=== PATIENT | male | born 1940 | race American Indian/Alaskan Native ===

== ENCOUNTER 2020-05-09 05:58 | Outpatient (REF) | payer MEDICARE, SELFPAY ==
[2020-05-09 08:06] LABS: PSA,Total (Free>4and<10) < 0.05 ng/mL (0.00-4.00)
== END 2020-05-09 05:59 | disposition home or self-care (01) ==
LOC: HO.LAB 05:58
PROVIDERS: PCP Internal Medicine Sports Medicine; Visit Provider Urology
DX: Z12.5 Encounter for screening for malignant neoplasm of prostate (principal)
CPT/HCPCS: 84153

== ENCOUNTER → 2020-05-30 08:30 | Outpatient (BNVA) | payer MEDICARE, SELFPAY | PROVIDERS: PCP Internal Medicine Sports Medicine; Visit Provider Urology | DX: Z13.89 Encounter for screening for other disorder (principal) | CPT/HCPCS: 99212; Q3014 ==

== ENCOUNTER 2020-09-19 10:28 | Outpatient (REF) | payer MEDICARE, SELFPAY ==
[2020-09-19 12:04] LABS: MANUAL DIFF FLAG NO
[2020-09-19 12:12] LABS: Basophils Absolute Auto 0.1 X10*3/uL (0.0-0.2); Basophils Percent Auto 1.1 % (0-2); Eosinophils Absolute Auto 0.4 X10*3/uL (0.0-0.4); Eosinophils Percent Auto 5.8 % (0-4); Hematocrit 35.5 % (42-52); Hemoglobin 11.7 g/dl (14.0-18.0); Imm Gran Abs Auto 0.01 X10*3/uL (0.00-0.03); Imm Gran Pct Auto 0.1 % (0.0-0.4); Lymphocytes Absolute Auto 2.4 X10*3/uL (1.2-4.9); Lymphocytes Percent Auto 32.8 % (20-40); Mean Corpuscular Hemoglobin 33.1 pg (27.0-33.0); Mean Corpuscular Volume 100.3 fL (80-98); Mean Platelet Volume 10.3 fL (9.4-12.4); Monocytes Absolute Auto 0.8 X10*3/uL (0.1-1.2); Monocytes Percent Auto 10.7 % (2-11); Neutrophils Absolute Auto 3.6 X10*3/uL (2.0-8.3); Neutrophils Percent Auto 49.5 % (45-73); Platelet Count 260 X10*3/uL (160-400); Red Blood Count 3.54 X10*6/uL (4.60-5.80); Red Cell Distribution Width 13.4 % (11.0-16.0); White Blood Count 7.2 X10*3/uL (4.8-10.8)
[2020-09-19 13:52] LABS: Alanine Aminotransferase 42 U/L (0-40); Albumin Level 4.7 g/dL (3.5-5.0); Alkaline Phosphatase 69 U/L (39-117); Anion Gap 14 (12-20); Aspartate Amino Transferase 46 U/L (5-37); Bilirubin Total 0.6 mg/dL (0.0-1.0); Blood Urea Nitrogen 26 mg/dL (9-16); C Reactive Protein 0.09 mg/dL (< or = 0.50); Calcium 9.9 mg/dL (8.4-10.2); Carbon Dioxide 27 mmol/L (22-29); Chloride 104 mmol/L (96-108); Estimated Glomerular Filt Rate > 60; Glucose Random 106 mg/dL (60-115); Potassium 4.4 mmol/L (3.3-5.1); Sodium 141 mmol/L (135-145); Total Protein 7.2 g/dL (6.5-8.0)
[2020-09-19 14:23] LABS: Erythrocyte Sedimentation Rate 9 MM/HR (0-15)
== END 2020-09-19 10:29 | disposition home or self-care (01) ==
LOC: HO.LAB 10:28
PROVIDERS: PCP Internal Medicine Sports Medicine; Visit Provider Student in an Organized Health Care Education/Training Program
DX: M06.00 Rheumatoid arthritis without rheumatoid factor, unspecified site (principal)
CPT/HCPCS: 36415; 80053; 85025; 85652; 86140; 99212

== ENCOUNTER 2020-11-18 05:58 | Outpatient (REF) | payer MEDICARE, SELFPAY ==
[2020-11-18 07:11] LABS: Prostate Specific Antigen < 0.05 ng/mL (<0.05-4.0)
== END 2020-11-18 05:59 | disposition home or self-care (01) ==
LOC: HO.LAB 05:58
PROVIDERS: PCP Internal Medicine Sports Medicine; Visit Provider Urology
DX: C61 Malignant neoplasm of prostate (principal)
CPT/HCPCS: 36415; 84153

== ENCOUNTER → 2020-11-26 13:26 | Outpatient (BNVA) | payer MEDICARE, SELFPAY | PROVIDERS: Visit Provider Urology | DX: C61 Malignant neoplasm of prostate (principal) | CPT/HCPCS: 99212 ==

== ENCOUNTER 2021-05-20 05:55 | Outpatient (REF) | payer MEDICARE, SELFPAY ==
[2021-05-20 09:37] LABS: Prostate Specific Antigen < 0.05 ng/mL (<0.05-4.0)
== END 2021-05-20 05:56 | disposition home or self-care (01) ==
LOC: HO.LAB 05:55
PROVIDERS: PCP Internal Medicine Sports Medicine; Visit Provider Urology
DX: Z12.5 Encounter for screening for malignant neoplasm of prostate (principal); C61 Malignant neoplasm of prostate
CPT/HCPCS: 36415; 84153

== ENCOUNTER → 2021-06-17 10:42 | Outpatient (BNVA) | payer MEDICARE, SELFPAY | PROVIDERS: Visit Provider Urology | DX: Z13.89 Encounter for screening for other disorder (principal) | CPT/HCPCS: Q3014 ==

== ENCOUNTER 2021-10-06 08:05 | Outpatient (REF) | payer MEDICARE, SELFPAY ==
[2021-10-06 09:33] LABS: MANUAL DIFF FLAG NO
[2021-10-06 09:54] LABS: Basophils Absolute Auto 0.1 X10*3/uL (0.0-0.2); Eosinophils Absolute Auto 0.3 X10*3/uL (0.0-0.4); Eosinophils Percent Auto 3.9 % (0-4); Hematocrit 37.3 % (42.0-52.0); Hemoglobin 12.3 g/dl (14.0-18.0); Imm Gran Abs Auto 0.01 X10*3/uL (0.00-0.03); Imm Gran Pct Auto 0.1 % (0.0-0.4); Lymphocytes Absolute Auto 1.9 X10*3/uL (1.2-4.9); Lymphocytes Percent Auto 28.6 % (20-40); Mean Corpuscular Hemoglobin 31.9 pg (27.0-33.0); Mean Corpuscular Volume 96.9 fL (80.0-98.0); Mean Platelet Volume 9.8 fL (9.4-12.4); Monocytes Absolute Auto 0.8 X10*3/uL (0.1-1.2); Monocytes Percent Auto 11.9 % (2-11); Neutrophils Absolute Auto 3.7 x10*3/uL (2.0-8.3); Neutrophils Percent Auto 54.5 % (45-73); Platelet Count 228 X10*3/uL (160-400); Red Blood Count 3.85 X10*6/uL (4.60-5.80); Red Cell Distribution Width 13.2 % (11.0-16.0); White Blood Count 6.7 X10*3/uL (4.8-10.8)
[2021-10-06 10:27] LABS: Alanine Aminotransferase 25 U/L (0-40); Albumin Level 4.5 g/dL (3.5-5.0); Alkaline Phosphatase 68 U/L (39-117); Anion Gap 16 (12-20); Aspartate Amino Transferase 31 U/L (5-37); Bilirubin Total 0.7 mg/dL (0.0-1.0); Blood Urea Nitrogen 25 mg/dL (9-16); C Reactive Protein 0.14 mg/dL (< or = 0.50); Calcium 10.1 mg/dL (8.4-10.2); Carbon Dioxide 27 mmol/L (22-29); Chloride 103 mmol/L (96-108); Estimated Glomerular Filt Rate > 60; Glucose Random 92 mg/dL (60-115); Potassium 4.7 mmol/L (3.3-5.1); Sodium 141 mmol/L (135-145)
[2021-10-06 10:31] LABS: Erythrocyte Sedimentation Rate 9 MM/HR (0-15)
== END 2021-10-06 08:06 | disposition home or self-care (01) ==
LOC: HO.LAB 08:05
PROVIDERS: PCP Physician Assistant; Visit Provider Nurse Practitioner Family
DX: M06.00 Rheumatoid arthritis without rheumatoid factor, unspecified site (principal); R01.1 Cardiac murmur, unspecified
CPT/HCPCS: 36415; 80053; 85025; 85652; 86140; 99212

== ENCOUNTER → 2021-11-24 07:23 | Outpatient (REF) | payer MEDICARE, SELFPAY ==
--- NOTE | 2021-11-24 07:27 | CA_ITS ---
Transthoracic Echocardiogram Patient (Last, First, Middle): Piter Barber, Gender: Male Date of : 1940 Age: 81 Procedure Date: 11/24/2021 Procedure Type: Transthoracic Echocardiogram Location: OP Height: 172.72 cm Weight: 79.83 kg BSA: 1.94 m2 Heart Rate: 75 bpm BP: 144 / 80 mmHg Picture Enlarger: SB Referring MD: Lula Reddy NP Spectacle Truer: Law Ibarra MD Symptoms: R01.1 - Cardiac murmur, unspecified Study Quality: Adequate ECG Rhythm: Sinus with PACs Conclusions: - The left ventricular systolic function is mildly decreased. The visually estimated ejection fraction is between 45-50%. - There is mild aortic valve stenosis. - There is moderate mitral annular calcification. 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 Findings Left Ventricle Normal left ventricular cavity size. The left ventricular systolic function is mildly decreased. The visually estimated ejection fraction is between 45 50%. There is mild global hypokinesis. Diastolic function is normal for age. There is mild septal asymmetric hypertrophy. Right Ventricle Normal right ventricular cavity size and systolic function. Atria The left atrium is normal in size. Aortic Valve There is moderate calcification of the aortic valve. There is mild aortic valve stenosis. The mean gradient is 13 mmHg. The aortic valve area is 1.69 cm2. There is no aortic valve regurgitation. Mitral Valve There is moderate mitral annular calcification. There is trace mitral valve regurgitation. There is no mitral valve stenosis. Pulmonic Valve The pulmonic valve is likely normal. Tricuspid Valve Normal tricuspid valve structure. There is trace tricuspid valve regurgitation. Tricuspid regurgitation envelope is inadequate for calculation of right ventricular systolic pressure. 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 Venous The inferior vena cava is normal in size and collapses greater than 50% with inspiration. Pericardium/Pleural There is no evidence of pericardial effusion. Prior Study Comparison No prior study available for comparison. Measurements 2D Linear Measurements IVSd: 1.05 0.6-0.9/0.6-1.0 cm LVIDd: 5.38 3.9-5.3/4.2-5.9 cm LVIDd Index: 2.77 2.4-3.2/2.2-3.1 cm/m2 LVIDs: 4.63 2.0-3.6 cm LVPWd: 0.70 0.7-1.1 cm LA Diam: 3.90 2.7-3.8/3.0-4.0 cm LAIDs Index: 2.01 1.5-2.3 cm/m2 LV Mass: 215.02 67-162/88-224 g LV Mass Index: 110.83 43-95/49-115 g/m2 LVOT Diam: 2.20 3.0+(-)1.3 cm 2D Systolic Function EF 4C: 46.30 >55% EF 2C: 61.40 >55% EF BiP: 52.80 >55% Mitral Valve MV VTI: 0.37 MV Pk Oliverio: 1.33 MV Mn Oliverio: 0.78 MV Pk Grad: 7.00 MV Mn Grad: 3.00 MV Pk E: 0.66 MV PK A: 1.17 MV Decel Time: 310.00 E/A: 0.60 E'Lateral: 8.16 E'Medial: 3.81 E/E' Med: 17.20 E/E' Lat: 8.00 PHT: 91.00 MVA PHT: 2.42 MVA Continuity: 2.29 Decel Pepin: 2.11 Aortic Valve AoV Pk Oliverio: 2.41 AoV Mn Oliverio: 1.74 AoV VTI: 0.49 AoV Pk Grad: 23.00 Aov Mn Grad: 13.00 LOLIS Cont.VTI: 1.69 LVOT LVOT Pk Oliverio: 1.01 LVOT Mn Oliverio: 0.79 LVOT VTI: 0.22 LVOT Pk Grad: 4.00 LVOT Mn Grad: 3.00 LVOT Diam: 2.20 LVOT Area: 3.80 Diastolic Function MV Pk E: 0.66 MV Pk A: 1.17 E/A: 0.60 E'Medial: 3.81 E/E' Med: 17.20 E' Laterial: 8.16 E/E' Lat: 8.00 Right Ventricle TAPSE (mm): 19.30 TVS' Oliverio: 13.60 Great Vessels Aorta Sinus of Valsalva: 3.50 2.0-3.5 cm Ao Asc: 4.20 2.1-3.4 cm Pulmonary Veins Pulm Vein S/D 1.70 Pulmonary Valve PV Pk Oliverio: 0.81 Peak PV Grad: 3.00 Updated in Other Vendor System with Status of Final Law Ibarra MD electronically signed on 11/24/2021 11:00:55 AM with status of Final
== END ==
LOC: HO.CARD 07:23
PROVIDERS: Visit Provider Nurse Practitioner Family
DX: R01.1 Cardiac murmur, unspecified (principal)
CPT/HCPCS: 93306

== ENCOUNTER 2021-12-03 05:59 | Outpatient (REF) | payer MEDICARE, SELFPAY ==
[2021-12-03 07:09] LABS: Microalbum/Creatinine Ratio Ur 19.9 ug/mg cr
[2021-12-03 07:26] LABS: Hematocrit 34.8 % (42.0-52.0); Hemoglobin 11.3 g/dl (14.0-18.0); Mean Corpuscular HGB Conc 32.5 g/dl (31.0-36.0); Mean Corpuscular Hemoglobin 32.3 pg (27.0-33.0); Mean Corpuscular Volume 99.4 fL (80.0-98.0); Mean Platelet Volume 10.3 fL (9.4-12.4); Platelet Count 215 X10*3/uL (160-400); Red Cell Distribution Width 13.6 % (11.0-16.0); White Blood Count 5.8 X10*3/uL (4.8-10.8)
[2021-12-03 07:41] LABS: Estimated Average Glucose 97 mg/dL; Hemoglobin A1C 97.6678 umol/L
[2021-12-03 07:43] LABS: Alanine Aminotransferase 31 U/L (0-40); Albumin Level 4.5 g/dL (3.5-5.0); Alkaline Phosphatase 72 U/L (39-117); Anion Gap 13 (12-20); Aspartate Amino Transferase 33 U/L (5-37); Blood Urea Nitrogen 20 mg/dL (9-16); Calcium 9.5 mg/dL (8.4-10.2); Carbon Dioxide 29 mmol/L (22-29); Chloride 103 mmol/L (96-108); Cholesterol 185 mg/dL; Estimated Glomerular Filt Rate > 60; Glucose Fasting 101 mg/dL (60-99); HDL Cholesterol 69 mg/dL; LDL Cholesterol Calculated 85 mg/dl; Potassium 4.2 mmol/L (3.3-5.1); Sodium 141 mmol/L (135-145); Total Protein 6.9 g/dL (6.5-8.0); Triglycerides 155 mg/dL
[2021-12-03 08:00] LABS: TSH reflex Free T4 2.18 uIU/mL (0.32-4.0)
[2021-12-03 08:29] LABS: Prostate Specific Antigen < 0.05 ng/mL (<0.05-4.0)
== END 2021-12-03 06:00 | disposition home or self-care (01) ==
LOC: HO.LAB 05:59
PROVIDERS: PCP Physician Assistant; Visit Provider Urology
DX: Z12.5 Encounter for screening for malignant neoplasm of prostate (principal); C61 Malignant neoplasm of prostate; I10 Essential (primary) hypertension; E78.2 Mixed hyperlipidemia
CPT/HCPCS: 36415; 80053; 80061; 82043; 83036; 84153; 84443; 85027

== ENCOUNTER → 2021-12-09 08:32 | Outpatient (BNVA) | payer MEDICARE, SELFPAY | PROVIDERS: PCP Physician Assistant; Visit Provider Urology | DX: C61 Malignant neoplasm of prostate (principal); N40.1 Benign prostatic hyperplasia with lower urinary tract symptoms; N13.8 Other obstructive and reflux uropathy | CPT/HCPCS: Q3014 ==

== ENCOUNTER 2022-04-08 09:11 | Outpatient (REF) | payer MEDICARE, SELFPAY ==
[2022-04-08 10:48] LABS: C Reactive Protein 0.11 mg/dL (< or = 0.50)
[2022-04-08 11:28] LABS: Erythrocyte Sedimentation Rate 16 MM/HR (0-15)
== END 2022-04-08 09:12 | disposition home or self-care (01) ==
LOC: HO.10HDL 09:11
PROVIDERS: Visit Provider Internal Medicine Rheumatology
DX: M06.00 Rheumatoid arthritis without rheumatoid factor, unspecified site (principal)
CPT/HCPCS: 36415; 85652; 86140; 99212

== ENCOUNTER → 2022-06-18 10:57 | Outpatient (BNVA) | payer MEDICARE, SELFPAY | PROVIDERS: PCP Physician Assistant; Referring Provider Nurse Practitioner Family; Visit Provider Internal Medicine | DX: I77.810 Thoracic aortic ectasia (principal); I42.9 Cardiomyopathy, unspecified; I35.0 Nonrheumatic aortic (valve) stenosis; I34.81 Nonrheumatic mitral (valve) annulus calcification; R00.0 Tachycardia, unspecified | CPT/HCPCS: 93005; 99202 ==

== ENCOUNTER → 2022-06-25 07:41 | Outpatient (REF) | payer MEDICARE, SELFPAY ==
--- NOTE | ~2022-06-25 | NM_ITS ---
Lexiscan Myocardial perfusion study Indication: Cardiomyopathy, assess for coronary disease and ischemia Technique: The patient was brought in for a Lexiscan perfusion study on 06/25/2022 and was injected 0.4 mg of Lexiscan intravenously. Within a minute of this injection 30 mCi of sestamibi was given intravenously. Images were obtained using the SPECT gamma camera interlaced with the gating device. Images were obtained in supine position. Resting perfusion study was performed on 06/26/2022. Patient was administered 30 mCi of sestamibi intravenously at rest. Images were then obtained in supine position. Images were processed with the software and compared side to side in short axis, horizontal long axis and vertical long axis views. Total DLP 91mGy-cm. Findings: Raw acquisition reviewed. There is intense subdiaphragmatic uptake towards inferolateral part. The stress perfusion study showed diminished tracer uptake in the proximal inferior septum; distal inferolateral wall; proximal anterolateral wall. With CT attenuation correction, there is shows improvement in liver suggestive of mostly artifactual causes.. The gated study shows low normal LV systolic function with calculated LVEF of 54%. LV cavity is mildly dilated in size. The gated study shows normal wall thickening and contraction of segments. Resting study shows diminished tracer uptake in the basal to mid inferior wall, parts of distal inferior wall. There is also subdiaphragmatic tracer uptake adjacent to the inferolateral wall. CT attenuation corrected images appear to have much tracer uptake is most likely technical. Gating at rest reveals normal wall motion with ejection fraction at 40%. The findings are consistent with fixed appearing defect in the proximal part of inferior septum; anterolateral wall and distal inferolateral wall. Probably all artifactual. NM/NM cardiolite stress test Impression: 1. Myocardial perfusion imaging study shows no clear evidence of any ischemia or infarction. Probably normal perfusion. 2. Gated LVEF is 54% during stress and 40% during rest. 3. Transient ischemic dilatation not present but LV chamber dilated. EKG component of the test reported separately.
--- NOTE | 2022-06-25 07:44 | CA_ITS ---
Acquisition Time: 2022-06-25 08:06:39 Total Exercise Time: 00:02:00 Test Indications: CARDIOMYOPATHY Medications: SEE CHART Protocol: LEXISCAN Max HR: 093 BPM 67% of Pred: 138 BPM Max BP: 138/078 mmHG Max Work Load: 1.0 METS Pharmacological stress test with Lexiscan injection, while sitting and kicking his legs, without anginal symptoms, with isolated PVCs, with normotensive response to injection, with nondiagnostic EKG for ischemia. Nuclear images pending. Test reviewed with Dr Ibarra. Referred By: Law Ibarra Overread By: JAXON DIAZ
== END ==
LOC: HO.CARD 07:41
PROVIDERS: PCP Physician Assistant; Visit Provider Internal Medicine
DX: I42.9 Cardiomyopathy, unspecified (principal)
CPT/HCPCS: 78452; 93017; A9500; J0280; J2785

== ENCOUNTER → 2022-06-26 07:50 | Outpatient (REF) | payer MEDICARE, SELFPAY ==
--- NOTE | 2022-06-26 07:54 | HM_ITS ---
Conclusion: 1. Patient was monitored for total period of 2 days and 23 hours 2. Baseline was normal sinus with average heart of 75 beats per minute 3. Total of 22,547 PACs accounting for 7% of total beats account for frequent PACs 4. Total of 1622 PVCs accounting for 0.5% of total beats account for occasional PVCs with 1 3 beat triplet at 98 beats per minute most suggestive of excellent idioventricular rhythm 5. No patient reported events MTDD
--- NOTE | 2022-06-26 07:54 | CA_ITS ---
Transthoracic Echocardiogram Limied Patient (Last, First, Middle): Piter Barber, Gender: Male Date of : 1940 Age: 82 Procedure Date: 06/26/2022 Procedure Type: Transthoracic Echocardiogram Limied Location: OP Height: 175.26 cm Weight: 83.92 kg BSA: 2.00 m2 Heart Rate: bpm BP: 132 / 60 mmHg Barber Tool Sharpener: Referring MD: Law Ibarra MD Symptoms: I42.9 - Cardiomyopathy, unspecified Study Quality: Adequate ECG Rhythm: Sinus Conclusions: - The left ventricular systolic function is mildly decreased. The calculated ejection fraction is 46% by biplane method. Findings Left Ventricle Normal left ventricular cavity size. There is moderately increased left ventricular wall thickness. The left ventricular systolic function is mildly decreased. The calculated ejection fraction is 46% by biplane method. Right Ventricle Mildly increased right ventricular cavity size. There is normal right ventricular systolic function. Venous The inferior vena cava is normal in size and collapses greater than 50% with inspiration. Prior Study Comparison No significant change compared to prior study dated: 11/24/2021. Measurements 2D Linear Measurements IVSd: 1.35 0.6-0.9/0.6-1.0 cm LVIDd: 4.76 3.9-5.3/4.2-5.9 cm LVIDd Index: 2.38 2.4-3.2/2.2-3.1 cm/m2 LVIDs: 3.54 2.0-3.6 cm LVPWd: 1.38 0.7-1.1 cm LV Mass: 324.83 67-162/88-224 g LV Mass Index: 162.42 43-95/49-115 g/m2 LVOT Diam: 2.00 3.0+(-)1.3 cm 2D Systolic Function EF 4C: 45.60 >55% EF 2C: 44.00 >55% EF BiP: 46.00 >55% LVOT LVOT Pk Oliverio: 1.04 LVOT Mn Oliverio: 0.69 LVOT VTI: 0.21 LVOT Pk Grad: 4.00 LVOT Mn Grad: 2.00 LVOT Diam: 2.00 LVOT Area: 3.14 Updated in Other Vendor System with Status of Final Law Ibarra MD electronically signed on 06/26/2022 2:18:21 PM with status of Final
== END ==
LOC: HO.CARD 07:50
PROVIDERS: PCP Physician Assistant; Visit Provider Internal Medicine
DX: I42.9 Cardiomyopathy, unspecified (principal); R00.0 Tachycardia, unspecified; I49.1 Atrial premature depolarization
CPT/HCPCS: 93242; 93308

== ENCOUNTER 2022-08-25 05:52 | Outpatient (REF) | payer MEDICARE, SELFPAY ==
[2022-08-25 08:07] LABS: Hematocrit 35.4 % (42.0-52.0); Hemoglobin 11.7 g/dl (14.0-18.0); Mean Corpuscular HGB Conc 33.1 g/dl (31.0-36.0); Mean Corpuscular Hemoglobin 34.1 pg (27.0-33.0); Mean Corpuscular Volume 103.2 fL (80.0-98.0); Mean Platelet Volume 10.4 fL (9.4-12.4); Platelet Count 218 X10*3/uL (160-400); Red Blood Count 3.43 X10*6/uL (4.60-5.80); Red Cell Distribution Width 12.3 % (11.0-16.0); White Blood Count 6.3 X10*3/uL (4.8-10.8)
[2022-08-25 09:53] LABS: Alanine Aminotransferase 34 U/L (0-40); Albumin Level 4.5 g/dL (3.5-5.0); Alkaline Phosphatase 61 U/L (39-117); Anion Gap 16 (12-20); Aspartate Amino Transferase 32 U/L (5-37); Blood Urea Nitrogen 21 mg/dL (9-16); Calcium 9.6 mg/dL (8.4-10.2); Carbon Dioxide 27 mmol/L (22-29); Chloride 104 mmol/L (96-108); Cholesterol 199 mg/dL; Estimated Glomerular Filt Rate > 60; Glucose Fasting 79 mg/dL (60-99); HDL Cholesterol 75 mg/dL; LDL Cholesterol Calculated 101 mg/dl; Potassium 4.2 mmol/L (3.3-5.1); Sodium 143 mmol/L (135-145); Total Protein 6.7 g/dL (6.5-8.0); Triglycerides 116 mg/dL
[2022-08-25 09:58] LABS: Creatinine Urine 181.42 mg/dL; Microalbum/Creatinine Ratio Ur 22.5 ug/mg cr
== END 2022-08-25 05:53 | disposition home or self-care (01) ==
LOC: HO.LAB 05:52
PROVIDERS: PCP Physician Assistant; Visit Provider Physician Assistant
DX: E78.2 Mixed hyperlipidemia (principal); I10 Essential (primary) hypertension
CPT/HCPCS: 36415; 80053; 80061; 82043; 84443; 85027

== ENCOUNTER → 2022-09-09 08:30 | Outpatient (BNVA) | payer MEDICARE, SELFPAY | PROVIDERS: PCP Physician Assistant; Referring Provider Physician Assistant; Visit Provider Internal Medicine | DX: I42.6 Alcoholic cardiomyopathy (principal); I35.0 Nonrheumatic aortic (valve) stenosis; I34.81 Nonrheumatic mitral (valve) annulus calcification; I77.810 Thoracic aortic ectasia; F10.90 Alcohol use, unspecified, uncomplicated; R00.0 Tachycardia, unspecified | CPT/HCPCS: 93005; 99212 ==

== ENCOUNTER → 2022-10-23 07:52 | Outpatient (BNVA) | payer MEDICARE, SELFPAY | PROVIDERS: PCP Physician Assistant; Visit Provider Nurse Practitioner Family | DX: M06.00 Rheumatoid arthritis without rheumatoid factor, unspecified site (principal); R01.1 Cardiac murmur, unspecified | CPT/HCPCS: 99212 ==

== ENCOUNTER 2022-12-03 06:09 | Outpatient (REF) | payer MEDICARE, SELFPAY | END 2022-12-03 06:10 | disposition home or self-care (01) | LOC: HO.LAB 06:09 | PROVIDERS: PCP Physician Assistant; Visit Provider Urology | DX: N40.1 Benign prostatic hyperplasia with lower urinary tract symptoms (principal); N13.8 Other obstructive and reflux uropathy; C61 Malignant neoplasm of prostate; Z12.5 Encounter for screening for malignant neoplasm of prostate | CPT/HCPCS: 36415; 84153 ==

== ENCOUNTER 2022-12-09 11:25 | Outpatient (AMB) | payer MEDICARE, SELFPAY ==
--- NOTE | 2022-12-09 11:23 | A.OFFVIS_ITS ---
Intake Intake Visit Reasons: 1Y PSA(set) Intake Note: * Patient presents today for a 1 year follow-up with PSA results * Meds- None * Allergies to Antibiotic- None * Blood Thinner- None * PSA- <0.10 ng/mL Executive Chairman Of The Board Required: No Accompanied by: Self / Same As Patient Allergies lisinopril [LISINOPRIL] Allergy (Intermediate, Verified 12/09/22 11:26) ANGIOEDEMA Medication List - Last Reconciled 12/09/22 by Trever Larios MD ascorbate calcium (vitamin C) 500 mg PO DAILY hydroxychloroquine 200 mg PO BID losartan-hydrochlorothiazide 50-12.5 mg 1 tab PO DAILY 90 days simvastatin 20 mg PO BEDTIME triamcinolone acetonide 0.1% 1 appl topical DAILY 30 days HPI HPI Comments History of Present Illness Details Piter is a pleasant male. He is a patient of Dr Pratt. He is seen for the following urologic conditions - prostate cancer PSA stable Minimal symptoms Continue 12 month surveillance Prostate cancer high risk, initial therapy external beam radiation with hormones Initial diagnosis 2000 Initial therapy external beam radiation with hormones PSA has remained well controlled Minimal urinary issues denies urgency, frequency, weakness of stream PSA 11/18 <0.1, 05/20 <0.1, <0.1, 12/20 <0.1 Twelve month follow-up [facility] Medical History Elevated blood pressure reading in office with diagnosis of hypertension Gastroesophageal reflux disease Osteoarthritis, hand Primary osteoarthritis of knees, bilateral Primary osteoarthritis, left hand Primary osteoarthritis, right hand Prostate cancer Prostate cancer Rheumatoid arthritis Seronegative rheumatoid arthritis Surgical History H/O removal of cyst History of hernia repair Family History Father Myocardial infarction Mother Alzheimer disease Social History Housing: House Alcohol intake: current Alcohol intake frequency: 0-2 drinks per day Alcohol type: beer and hard liquor Patient Tobacco Use Status: Former Tobacco user Quit Date: 1955 Tobacco use type: Cigarette e-Cigarette/Vaping Use: Never Used service: No Current occupational status: retired Cognitive needs: No Hearing needs: No Vision needs: No Review of Systems Const Denies chills and Denies fever(s) Card Reports no additional complaints and Denies syncope Resp Denies cough GI Denies abdominal pain and Denies heartburn Reports as per HPI and Denies change in libido Neuro Denies syncope Psych Denies change in libido Endo Denies change in libido Physical Exam Const General: cooperative, healthy appearing, comfortable and no acute distress Orientation/consciousness: patient oriented x3 HEENT Face and sinus: Yes normal facial exam Mouth: moist mucous membranes Neck Neck: Yes normal visual inspection, Yes full ROM and Yes trachea midline Chest Chest palpation & inspection: normal inspection of the chest Resp Effort & Inspection: normal respiratory effort, able to speak in complete sentences and no respiratory distress GI Inspection: Yes normal to inspection Back/Spine/Pelvis Cervical Spine: normal cervical lordosis Thoracic/Lumbar Spine: thoracic and lumbar spine normal to inspection Skin General skin exam: no rashes or lesions noted Neuro General: patient oriented x3, gait normal, tone normal and moves all extremities Extrem General: Yes normal to inspection and Yes capillary refill normal Assessment & Plan Assessment & Plan (1) Prostate cancer: Comment: High risk, initial therapy XRT with GnRH 2 years 2000 Code(s): C61 - Malignant neoplasm of prostate Plan 12 month follow-up PSA Orders: Orders Prostate Specific Antigen 364 Days C61 - Malignant neoplasm of prostate Patient Instructions: Imaging studies, laboratory and physical exam results were discussed and reviewed in detail. No major barriers to patient understanding were identified. An opportunity to ask questions regarding the treatment plan was provided. All questions were answered. The patient expressed understanding and agreement with the above treatment plan. The patient is aware they should contact our office by phone for worsening of their current condition or the appearance of new urologic symptoms. Compliance is encouraged with any medications and followup testing that is ordered. It is a privilege to participate in the urologic care of your patient. If you have any questions or concerns regarding treatment for the above conditions, or other urologic issues, please do not hesitate to contact me. The office telephone contact is [phone]. This note is constructed using voice recognition software. While every effort has been made to ensure accuracy assistant housekeeping manager errors may have been included. Yours sincerely, Dr Trever Larios MD, [facility] - Urology Providers of Expert, Compassionate Care for the Genitourinary System Coding Level of Care Code Est Pt Level 4 (74171) Diagnoses Prostate cancer C61
== END 2022-12-09 11:49 | disposition home or self-care (01) ==
LOC: HO.HUSH 11:25
PROVIDERS: PCP Physician Assistant; Visit Provider Urology
DX: C61 Malignant neoplasm of prostate (principal)
CPT/HCPCS: 99213

== ENCOUNTER → 2022-12-09 11:25 | Outpatient (BNVA) | payer MEDICARE, SELFPAY | PROVIDERS: PCP Physician Assistant; Visit Provider Urology | DX: C61 Malignant neoplasm of prostate (principal) | CPT/HCPCS: 99212 ==

== ENCOUNTER 2023-03-08 08:12 | Outpatient (AMB) | payer MEDICARE, SELFPAY ==
--- NOTE | 2023-03-08 08:26 | A.OFFPC_ITS ---
Vital Signs 03/08/23 08:27 Height 5 ft 9 in Weight 177 lb BMI 26.1 BP 136/62 Blood Pressure Location Lt brachial Position Sitting Pulse 75 Pulse Source Pulse Oximeter Pulse Oximetry (%) 97 Oxygen Delivery Method Room Air Intake Visit Reasons: f/u HTN/ HLD / Cardiomyopathy Allergies lisinopril [LISINOPRIL] Allergy (Intermediate, Verified 03/08/23 08:35) ANGIOEDEMA Medication List - Last Reconciled 03/08/23 by Prabhu Pratt PA-C ascorbate calcium (vitamin C) 500 mg PO DAILY hydroxychloroquine 200 mg PO BID losartan-hydrochlorothiazide 50-12.5 mg 1 tab PO DAILY 90 days simvastatin 20 mg PO BEDTIME triamcinolone acetonide 0.1% 1 appl topical DAILY 30 days Tobacco use date assessed: 09/03/22 Fall risk assessment: No Falls in past year Last assessed Fall Risk: 03/08/23 Dental Screening Dental Screen Date: 03/08/23 Did you have a dental visit in the last 12 months?: No Did you have a dental problem in the last 6 months where you did not have access to dental care?: No Was dental information given to patient?: No HPI f/u HTN/ HLD / Cardiomyopathy HPI Details Patient is an 83-year-old male here today for follow-up visit.? Patient has a past medical history significant for prostate cancer, seronegative rheumatoid arthritis, hypertension and hyperlipidemia, cardiomyopathy . Cardiomyopathy: Patient recently followed up with Cardiology and underwent echocardiogram which did show mildly decreased systolic function, Holter monitor with did show several PACs and PVCs. Underwent a nuclear stress test as well without significant findings. Does report drinking 3-4 shots of camelia per day. .. Seronegative rheumatoid arthritis:? Was followed by Rheumatology , continues on Plaquenil for his RA. .. Prostate cancer:? Patient followed by a urologist and gets yearly PSAs.? Prostate cancer has been in remission.? PSAs have been nondetectable .. Hypertension:? Blood pressure acceptable today in office.? Otherwise patient asymptomatic without chest discomfort, dizziness or headaches.?. [facility] Medical History Seronegative rheumatoid arthritis Prostate cancer Gastroesophageal reflux disease Primary osteoarthritis, right hand Primary osteoarthritis, left hand Primary osteoarthritis of knees, bilateral Elevated blood pressure reading in office with diagnosis of hypertension Prostate cancer Osteoarthritis, hand Rheumatoid arthritis Surgical History History of hernia repair H/O removal of cyst Family History Father Myocardial infarction Mother Alzheimer disease Social History Housing: House Alcohol intake: current Alcohol intake frequency: 0-2 drinks per day Alcohol type: beer and hard liquor Patient Tobacco Use Status: Former Tobacco user Quit Date: 1955 Tobacco use type: Cigarette e-Cigarette/Vaping Use: Never Used service: No Current occupational status: retired Cognitive needs: No Hearing needs: No Vision needs: Yes Questionnaire PHQ-9 Over the last 2 weeks, how often have you been bothered by any of the following problems? 1. Little interest or pleasure in doing things: not at all 2. Feeling down, depressed, or hopeless: not at all 3. Trouble falling or staying asleep, or sleeping too much: not at all 4. Feeling tired or having little energy: not at all 5. Poor appetite or overeating: not at all 6. Feeling bad about yourself - or that you are a failure or have let yourself or your family down: not at all 7. Trouble concentrating on things, such as reading the newspaper or watching television: not at all 8. Moving or speaking so slowly that other people could have noticed. Or the opposite - being so fidgety or restless that you have been moving around a lot more than usual: not at all 9. Thoughts that you would be better off or of hurting yourself in some way: not at all Total score: 0 Depression Screening Interpretation: Negative Depression Screening Done: Yes [id number] - PHQ-9 Billing: Yes Source: Developed by Drs. Josh Saunders, Joyce Lobo, Umesh Romero and colleagues, with an educational mt from Anna Lozabai. Thrive Questionnaire Date Thrive assessed: 09/03/22 AUDIT C Alcohol Use Questionnaire (AUDIT-C) 1. How often do you have a drink containing alcohol?: 4 or more times a week 2. How many drinks containing alcohol do you have on a typical day when you are drinking?: 3 or 4 3. How often do you have six or more drinks on one occasion?: Daily or almost daily Total Score: 9 MARY-7 AMB Questionnaire MARY-7 Date MARY - 7 assessed: 09/03/22 Source: Developed by Drs. Josh Saunders, Joyce Lobo, Umesh Romero and colleagues, with an educational mt from Anna Lozabai. Review of Systems Const Denies headache(s) Eyes Denies loss of vision ENT Denies vertigo, Denies dizziness, Denies headache(s) and Denies sore throat Card Denies chest pain, Denies leg edema and Denies lightheadedness Resp Denies cough, Denies hemoptysis and Denies wheezing GI Denies abdominal pain, Denies melena, Denies constipation, Denies diarrhea and Denies vomiting Denies dysuria, Denies urinary frequency and Denies urinary urgency Musc Denies arthralgias, Denies joint swelling, Denies numbness and Denies tingling Neuro Denies Abnormal speech present, Denies behavioral changes, Denies vertigo, Denies dizziness, Denies headache(s), Denies loss of vision, Denies memory loss, Denies numbness and Denies tingling Psych Denies anxiety, Denies behavioral changes, Denies depression, Denies memory loss and Denies panic attacks Tomy/Lymph Denies easy bleeding and Denies easy bruising Aller/Immun Denies wheezing Physical exam (Primary Care) Vital Signs: Last Vital Signs Pulse 75 03/08/23 08:27 BP 136/62 03/08/23 08:27 Pulse Ox 97 03/08/23 08:27 Oxygen Delivery Method Room Air 03/08/23 08:27 BMI result Body Mass Index 26.1 Tobacco/Smoking Status: Tobacco use Status Tobacco use date assessed 09/03/22 03/08/23 08:31 Patient Tobacco Use Status Former Tobacco user 03/08/23 08:31 Tobacco use type Cigarette 03/08/23 08:31 e-Cigarette/Vaping Use Never Used 03/08/23 08:31 PHQ-9: PHQ-9 Score PHQ-9: Total score 0 03/08/23 08:36 Depression Screening Interpretation: Negative Thrive Assessment: Date of Thrive Assessment Date Thrive assessed 09/03/22 03/08/23 08:31 Const General: healthy appearing, no acute distress, alert and awake Nutritional Appearance: well nourished Orientation/consciousness: oriented to person, oriented to place and oriented to time HENMT Ears: TM's normal bilaterally General nose exam: Normal nasal mucous membranes and turbinates present Eyes Conjunctivae: conjunctivae normal Sclerae: sclerae normal Pupils: Equal, round and reactive pupils present Neck Neck: Yes no lymphadenopathy and Yes no JVD Thyroid: Thyroid normal Carotids: no bruits Resp Effort & Inspection: normal respiratory effort and not tachypneic Auscultation: no crackles, no rales, no rhonchi and no wheezes Cardio Rate: regular rate Rhythm: regular rhythm Heart sounds: no murmurs and normal S1 and S2 GI Palpation (GI): Soft to palpation, nontender, no hepatomegaly and no splenomegaly Auscultation: normal bowel sounds Skin General skin exam: no rashes or lesions noted and dry skin Neuro General: oriented to person, oriented to place and oriented to time Cranial nerves: Yes Equal, round and reactive pupils present Speech: No Abnormal speech present Gait exam (Neuro): Normal gait present Motor exam (neuro): no tremor noted Extrem Right upper extremity: full ROM Left upper extremity: full ROM Right lower extremity: full ROM; no edema Left lower extremity: full ROM; no edema Psych Mental Status: mental status grossly normal Speech and movement: Normal speech and movement present Affect: normal affect Attitude: cooperative Thought process: Normal thought process present Office Procedures Flu Questionnaire Does the patient have a severe egg allergy?: No Does the patient have severe life threatening allergies?: No Does the patient have a fever or illness today?: No Has the patient ever had Guillain-[place] Syndrome?: No Has the patient ever had any past reaction to a flu shot?: No Immunizations flu vacc [id number] 6mos up(PF) 60 mcg(15 mcgx4)/0.5 mL IM syringe Performing Provider: Prabhu Pratt PA-C Performing Location: [facility] Administered by: Rosemary Dunham CMA on 03/08/23 08:32 Dose Route Admin Location Dispensed Lot Number Expiration Date NDC Sr Vice President 0.5 mL IM Left Deltoid 0.5 mL [id number] 11/28/23 31036-845-59 [employer] VIS Given Date VIS Provided VIS Publication Date 03/08/23 Single Vaccine 21 Eligibility Eligibility Date Funding Source Not [facility] Eligible 03/08/23 Private Assessment and Plan Assessment & Plan (1) HTN (hypertension): Code(s): I10 - Essential (primary) hypertension Qualifiers: Hypertension type: primary hypertension Qualified Code(s): I10 - Essential (primary) hypertension Plan: Patient's blood pressure today in office acceptable will continue him on his current dose of antihypertensive medication. Blood pressure be below 140/90 (2) Cardiomyopathy: Code(s): I42.9 - Cardiomyopathy, unspecified Qualifiers: Cardiomyopathy type: alcoholic Qualified Code(s): I42.6 - Alcoholic cardiomyopathy Plan: Patient continues to follow cardiology, most recent echocardiogram showing mildly decreased left ventricular function. She does admit to drinking 3-4 per alcoholic drinks a day and promises to get down. Will follow-up with his research physician to discuss the possible need for beta- jose (3) HLD (hyperlipidemia): Code(s): E78.5 - Hyperlipidemia, unspecified Qualifiers: Hyperlipidemia type: mixed hyperlipidemia Qualified Code(s): E78.2 - Mixed hyperlipidemia Plan: Patient's most recent lipid panel acceptable. Will continue on simvastatin 20 mg Goal LDL to remain below 130 (4) Seronegative rheumatoid arthritis: Comment: OA in the hands as well. MTX 6930-2023 stopped due to alcohol use Hydroxychloroquine started 12/2017 Code(s): M06.00 - Rheumatoid arthritis without rheumatoid factor, unspecified site Plan: Patient continues on hydroxychloroquine for his rheumatoid arthritis. Does have fairly advanced arthritis in his hands. Orders: Orders Microalbumin, Random (w Creat) Today I10 - Essential (primary) hypertension Complete Blood Count no Diff Today I10 - Essential (primary) hypertension Lipid Panel Today E78.2 - Mixed hyperlipidemia Prostate Specific Antigen Scr Today E78.2 - Mixed hyperlipidemia, Z12.5 - Encounter for screening for malignant neoplasm of prostate Influenza [id number] Immunization Today Z23 - Encounter for immunization Comprehensive [place]. 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
[2023-03-08 08:27] VITALS: BP 136/62; PULSE 75; O2SAT 97; BMI 26.1
== END 2023-03-08 08:48 | disposition home or self-care (01) ==
PROVIDERS: Visit Provider Physician Assistant
DX: I10 Essential (primary) hypertension (principal); I42.6 Alcoholic cardiomyopathy; M06.00 Rheumatoid arthritis without rheumatoid factor, unspecified site; C61 Malignant neoplasm of prostate; Z23 Encounter for immunization; E78.2 Mixed hyperlipidemia
CPT/HCPCS: 90471; 90686; 99214

== ENCOUNTER → 2023-08-31 09:06 | Outpatient (REF) | payer MEDICARE, SELFPAY ==
--- NOTE | 2023-08-31 09:09 | CA_ITS ---
Transthoracic Echocardiogram Patient (Last, First, Middle): Piter Barber, Gender: Male Date of : 1940 Age: 83 Procedure Date: 08/31/2023 Procedure Type: Transthoracic Echocardiogram Location: OP Height: 180.34 cm Weight: 81.65 kg BSA: 2.02 m2 Heart Rate: bpm BP: 116 / 60 mmHg Rn Family: Referring MD: Law Ibarra MD [employer] Scanner Operator: Musa Lu MD Symptoms: I77.810 - Thoracic aortic ectasia Study Quality: Technically Difficult ECG Rhythm: Sinus Conclusions: - 1. Low normal LV ejection fraction of 50-55% with mild LVH with impaired relaxation filling pattern 2. Mildly dilated left atrium 3. At least mild aortic stenosis 4. Normal RV systolic pressure 5. Moderately dilated ascending aorta at 4.5 cm 6. No gross pericardial effusion Findings Left Ventricle The left ventricle was not well visualized. Normal left ventricular cavity size. There is mildly increased left ventricular wall thickness. The left ventricular systolic function is low normal. The visually estimated ejection fraction is between 50-55%. Spectral Doppler is indicative of an impaired relaxation filling pattern. E/E prime ratio is between 8 and 15 consistent with indeterminate filling pressures. Right Ventricle The right ventricle was not well visualized. Atria The left atrium is mildly dilated. Interatrial shunt cannot be excluded. The right atrium was not well visualized. Aortic Valve The aortic valve was not well visualized. There is moderate calcification of the aortic valve. There is moderate thickening of the aortic valve. There is mild aortic valve stenosis. The peak aortic gradient is 23 mmHg.The mean gradient is 12 mmHg. There is no aortic valve regurgitation. Mitral Valve There is mild anterior and severe posterior mitral leaflet thickening. There is severe mitral annular calcification. There is no mitral valve regurgitation. There is no mitral valve stenosis. Pulmonic Valve The pulmonic valve was not well visualized. Tricuspid Valve The tricuspid valve was not well visualized. There is mild tricuspid valve regurgitation. Tricuspid regurgitation envelope is inadequate for calculation of right ventricular systolic pressure. The right ventricular systolic pressure is 21 mmHg. Normal right atrial pressure. There is no evidence of pulmonary hypertension. Great Vessels The aorta was not well visualized. The pulmonary artery was not well visualized. There is moderate dilatation of the ascending aorta measuring 4.50 cm. Venous The inferior vena cava is normal in size. Pericardium/Pleural There is no evidence of pericardial effusion. Prior Study Comparison Changes noted compared to prior study dated: 06/26/2022. LV ejection fraction is marginally improved. Ascending aorta as further dilated at 4.5 cm Measurements 2D Linear Measurements IVSd: 1.26 0.6-0.9/0.6-1.0 cm LVIDd: 3.17 3.9-5.3/4.2-5.9 cm LVIDd Index: 1.57 2.4-3.2/2.2-3.1 cm/m2 LVIDs: 2.08 2.0-3.6 cm LVPWd: 1.25 0.7-1.1 cm Ao Root: 3.80 2.1-3.5 cm LV Mass: 157.45 67-162/88-224 g LV Mass Index: 77.95 43-95/49-115 g/m2 LVOT Diam: 2.90 3.0+(-)1.3 cm 2D Systolic Function EF 4C: 58.10 >55% EF 2C: 46.30 >55% EF BiP: 53.60 >55% Mitral Valve MV VTI: 0.39 MV Pk Oliverio: 1.52 MV Mn Oliverio: 0.79 MV Pk Grad: 9.00 MV Mn Grad: 3.00 MV Pk E: 0.75 MV PK A: 1.36 MV Decel Time: 160.00 E/A: 0.50 E'Lateral: 10.60 E'Medial: 4.57 E/E' Med: 16.30 E/E' Lat: 7.00 PHT: 47.00 MVA PHT: 4.68 MVA Continuity: 4.09 Decel Weber: 4.65 Aortic Valve AoV Pk Oliverio: 2.42 AoV Mn Oliverio: 1.57 AoV VTI: 0.46 AoV Pk Grad: 23.00 Aov Mn Grad: 12.00 LVOT LVOT Pk Oliverio: 1.10 LVOT Mn Oliverio: 0.73 LVOT VTI: 0.24 LVOT Pk Grad: 5.00 LVOT Mn Grad: 3.00 LVOT Diam: 2.90 LVOT Area: 6.61 Diastolic Function MV Pk E: 0.75 MV Pk A: 1.36 E/A: 0.50 E'Medial: 4.57 E/E' Med: 16.30 E' Laterial: 10.60 E/E' Lat: 7.00 Right Ventricle TAPSE (mm): 30.40 TVS' Oliverio: 14.40 Tricuspid Valve TR Pk Oliverio: 2.10 TR Pk Grad: 18.00 RA Press: 3.00 RVSP: 21.00 Great Vessels Aorta Ao Root-2D: 3.80 2.0-3.7 cm Ao Asc: 4.50 2.1-3.4 cm Pulmonary Valve PV Pk Oliverio: 1.11 Peak PV Grad: 5.00 Updated in Other Vendor System with Status of Final Musa Lu MD electronically signed on 09/01/2023 3:07:02 PM with status of Final
== END ==
LOC: HO.CARD 09:06
PROVIDERS: PCP Physician Assistant; Visit Provider Internal Medicine
DX: I77.810 Thoracic aortic ectasia (principal)
CPT/HCPCS: 93306

== ENCOUNTER → 2023-08-31 09:09 | Outpatient (BNV) | payer MEDICARE, SELFPAY | PROVIDERS: PCP Physician Assistant; Visit Provider Internal Medicine Cardiovascular Disease | DX: I35.0 Nonrheumatic aortic (valve) stenosis (principal); I71.21 Aneurysm of the ascending aorta, without rupture | CPT/HCPCS: 93306 ==

== ENCOUNTER 2023-09-07 08:19 | Outpatient (AMB) | payer MEDICARE, SELFPAY ==
[2023-09-07 08:25] VITALS: BP 128/70; PULSE 66; O2SAT 97; BMI 26.4
--- NOTE | 2023-09-07 08:25 | A.OFFPC_ITS ---
Vital Signs 09/07/23 08:25 Height 5 ft 9 in Weight 179 lb BMI 26.4 BP 128/70 Blood Pressure Location Lt brachial Position Sitting Pulse 66 Pulse Source Pulse Oximeter Pulse Oximetry (%) 97 Oxygen Delivery Method Room Air Intake Visit Reasons: f/u HTN/ HLD Allergies lisinopril [LISINOPRIL] Allergy (Intermediate, Verified 09/07/23 08:52) ANGIOEDEMA Medication List - Last Reconciled 09/07/23 by Prabhu Pratt PA-C ascorbate calcium (vitamin C) 500 mg PO DAILY hydroxychloroquine 200 mg PO BID losartan-hydrochlorothiazide 50-12.5 mg 1 tab PO DAILY 90 days simvastatin 20 mg PO BEDTIME triamcinolone acetonide 0.1% 1 appl topical DAILY 30 days Tobacco use date assessed: 09/07/23 Fall risk assessment: No Falls in past year Last assessed Fall Risk: 09/07/23 Dental Screening Dental Screen Date: 09/07/23 Did you have a dental visit in the last 12 months?: No Did you have a dental problem in the last 6 months where you did not have access to dental care?: No Was dental information given to patient?: No HPI f/u HTN/ HLD HPI Details Patient is an 83-year-old male here today for follow-up visit.? Patient has a past medical history significant for prostate cancer, seronegative rheumatoid arthritis, hypertension and hyperlipidemia, cardiomyopathy . UNFORTUNATELY HAS NOT GOTTEN LABS DONE FOR TODAY'S VISIT. Cardiomyopathy: Patient recently followed up with Cardiology and underwent echocardiogram which did show mildly decreased systolic function, Holter monitor with did show several PACs and PVCs. Underwent a nuclear stress test as well without significant findings. Otherwise patient reports he feels well without any overt signs of Congestive heart failure. Does report drinking 3-4 shots of camelia per day. .. Seronegative rheumatoid arthritis:? Was followed by Rheumatology , continues on Plaquenil for his RA. He denies any significant arthralgias. .. Prostate cancer:? Patient followed by a urologist and gets yearly PSAs.? Prostate cancer has been in remission.? PSAs have been nondetectable .. Hypertension:? Blood pressure acceptable today in office.? Otherwise patient asymptomatic without chest discomfort, dizziness or headaches. [facility] Medical History Seronegative rheumatoid arthritis Prostate cancer Gastroesophageal reflux disease Primary osteoarthritis, right hand Primary osteoarthritis, left hand Primary osteoarthritis of knees, bilateral Elevated blood pressure reading in office with diagnosis of hypertension Prostate cancer Osteoarthritis, hand Rheumatoid arthritis Surgical History History of hernia repair H/O removal of cyst Family History Father Myocardial infarction Mother Alzheimer disease Social History Housing: House Alcohol intake: current Alcohol intake frequency: 0-2 drinks per day Alcohol type: beer and hard liquor Patient Tobacco Use Status: Former Tobacco user Quit Date: 1955 Tobacco use type: Cigarette e-Cigarette/Vaping Use: Never Used service: No Current occupational status: retired Cognitive needs: No Hearing needs: No Vision needs: Yes Questionnaire PHQ-9 Over the last 2 weeks, how often have you been bothered by any of the following problems? 1. Little interest or pleasure in doing things: not at all 2. Feeling down, depressed, or hopeless: not at all 3. Trouble falling or staying asleep, or sleeping too much: not at all 4. Feeling tired or having little energy: not at all 5. Poor appetite or overeating: not at all 6. Feeling bad about yourself - or that you are a failure or have let yourself or your family down: not at all 7. Trouble concentrating on things, such as reading the newspaper or watching television: not at all 8. Moving or speaking so slowly that other people could have noticed. Or the opposite - being so fidgety or restless that you have been moving around a lot more than usual: not at all 9. Thoughts that you would be better off or of hurting yourself in some way: not at all Total score: 0 Depression Screening Interpretation: Negative Depression Screening Done: Yes 67175 - PHQ-9 Billing: Yes Source: Developed by Drs. Josh Saunders, Joyce Lobo, Umesh Romero and colleagues, with an educational mt from [email or web address]. Thrive Questionnaire Date Thrive assessed: 09/07/23 I am a: Patient What is your living situation today?: I have a steady place to live Within the past 12 months, did the food you bought not last and you didn't have the money to get more?: Never true Within the past 12 months, did you worry whether your food would run out before you got money to buy more?: Never true Do you have trouble paying for medicines?: No Do you have trouble getting transportation to medical appointments?: No Do you have trouble paying your heating and electricity bill?: No Do you have trouble taking care of your child, family member or friend?: No Do you have trouble with day-to-day activities such as bathing, preparing meals, shopping, managing finances, etc.?: No Are you currently unemployed and looking for a job?: No Are you interested in more education?: No Currently or been in a relationship where the following occur: no concerns reported THRIVE Score: 0 AUDIT C Alcohol Use Questionnaire (AUDIT-C) 1. How often do you have a drink containing alcohol?: 4 or more times a week 2. How many drinks containing alcohol do you have on a typical day when you are drinking?: 3 or 4 3. How often do you have six or more drinks on one occasion?: Daily or almost daily Total Score: 9 MARY-7 AMB Questionnaire MARY-7 Date MARY - 7 assessed: 09/07/23 Feeling nervous, anxious, or on edge: 0 = Not at all Not being able to stop or control worryin = Not at all Worrying too much about different things: 0 = Not at all Trouble relaxin = Not at all Being so restless that it is hard to sit still: 0 = Not at all Becoming easily annoyed or irritable: 0 = Not at all Feeling afraid as if something awful might happen: 0 = Not at all Total MARY-7 score (0-4 normal; 5-9 mild; 10-14 moderate; 15-21 severe): 0 Source: Developed by Drs. Josh Saunders, Joyce Lobo, Umesh Romero and colleagues, with an educational mt from [email or web address]. MARY-7 Assessment Billing MARY-7 Assessment Tool: MARY-7 Assessment 78039 Review of Systems Const Denies headache(s) Eyes Denies loss of vision ENT Denies vertigo, Denies dizziness, Denies headache(s) and Denies sore throat Card Denies chest pain, Denies leg edema and Denies lightheadedness Resp Denies cough, Denies hemoptysis and Denies wheezing GI Denies abdominal pain, Denies melena, Denies constipation, Denies diarrhea and Denies vomiting Denies dysuria, Denies urinary frequency and Denies urinary urgency Musc Denies arthralgias, Denies joint swelling, Denies numbness and Denies tingling Neuro Denies Abnormal speech present, Denies behavioral changes, Denies vertigo, Denies dizziness, Denies headache(s), Denies loss of vision, Denies memory loss, Denies numbness and Denies tingling Psych Denies anxiety, Denies behavioral changes, Denies depression, Denies memory loss and Denies panic attacks Tomy/Lymph Denies easy bleeding and Denies easy bruising Aller/Immun Denies wheezing Physical exam (Primary Care) Vital Signs: Last Vital Signs Pulse 66 09/07/23 08:25 BP 128/70 09/07/23 08:25 Pulse Ox 97 09/07/23 08:25 Oxygen Delivery Method Room Air 09/07/23 08:25 BMI result Body Mass Index 26.4 Tobacco/Smoking Status: Tobacco use Status Tobacco use date assessed 09/07/23 09/07/23 08:30 Patient Tobacco Use Status Former Tobacco user 09/07/23 08:30 Tobacco use type Cigarette 09/07/23 08:30 e-Cigarette/Vaping Use Never Used 09/07/23 08:30 PHQ-9: PHQ-9 Score PHQ-9: Total score 0 09/07/23 08:53 Depression Screening Interpretation: Negative Thrive Assessment: Date of Thrive Assessment Date Thrive assessed 09/07/23 09/07/23 08:30 Currently or been in a relationship where the following occur: no concerns reported Const General: healthy appearing, no acute distress, alert and awake Nutritional Appearance: well nourished Orientation/consciousness: oriented to person, oriented to place and oriented to time HENMT Ears: TM's normal bilaterally General nose exam: Normal nasal mucous membranes and turbinates present Eyes Conjunctivae: conjunctivae normal Sclerae: sclerae normal Pupils: Equal, round and reactive pupils present Neck Neck: Yes no lymphadenopathy and Yes no JVD Thyroid: Thyroid normal Carotids: no bruits Resp Effort & Inspection: normal respiratory effort and not tachypneic Auscultation: no crackles, no rales, no rhonchi and no wheezes Cardio Rate: regular rate Rhythm: regular rhythm Heart sounds: no murmurs and normal S1 and S2 GI Palpation (GI): Soft to palpation, nontender, no hepatomegaly and no splenomegaly Auscultation: normal bowel sounds Skin General skin exam: no rashes or lesions noted and dry skin Neuro General: oriented to person, oriented to place and oriented to time Cranial nerves: Yes Equal, round and reactive pupils present Speech: No Abnormal speech present Gait exam (Neuro): Normal gait present Motor exam (neuro): no tremor noted Extrem Right upper extremity: full ROM Left upper extremity: full ROM Right lower extremity: full ROM; no edema Left lower extremity: full ROM; no edema Psych Mental Status: mental status grossly normal Speech and movement: Normal speech and movement present Affect: normal affect Attitude: cooperative Thought process: Normal thought process present Assessment and Plan Assessment & Plan (1) HTN (hypertension): Code(s): I10 - Essential (primary) hypertension Plan: Patient's blood pressure today in office acceptable will continue him on his current dose of antihypertensive medication. Blood pressure be below 140/90 (2) Cardiomyopathy: Code(s): I42.9 - Cardiomyopathy, unspecified Plan: Patient continues to follow cardiology, most recent echocardiogram showing mildly decreased left ventricular function. She does admit to drinking 3-4 per alcoholic drinks a day and promises to get down. (3) HLD (hyperlipidemia): Code(s): E78.5 - Hyperlipidemia, unspecified Plan: Patient's most recent lipid panel acceptable. Patient's total cholesterol and LDL has been stable. Will continue on simvastatin 20 mg Goal LDL to remain below 130 (4) Seronegative rheumatoid arthritis: Code(s): M06.00 - Rheumatoid arthritis without rheumatoid factor, unspecified site Plan: Patient continues on hydroxychloroquine for his rheumatoid arthritis. Does have fairly advanced arthritis in his hands though was not to bother with pain or inflammation. Coding Level of Care Code Est Pt Level 4 (24814) Diagnoses HTN (hypertension) I10 Cardiomyopathy I42.9 HLD (hyperlipidemia) E78.5 Seronegative rheumatoid arthritis M06.00 Additional Codes MARY-7 Assessment Billing - MARY-7 Assessment Tool: MARY-7 Assessment 45599 ([id number])
== END 2023-09-07 09:02 | disposition home or self-care (01) ==
PROVIDERS: PCP Physician Assistant; Visit Provider Physician Assistant
DX: I10 Essential (primary) hypertension (principal); I42.9 Cardiomyopathy, unspecified; E78.5 Hyperlipidemia, unspecified; M06.00 Rheumatoid arthritis without rheumatoid factor, unspecified site
CPT/HCPCS: 99214

== ENCOUNTER 2023-09-21 06:01 | Outpatient (REF) | payer MEDICARE, SELFPAY ==
[2023-09-21 07:53] LABS: Hemoglobin 12.3 g/dl (14.0-18.0); Mean Corpuscular HGB Conc 33.2 g/dl (31.0-36.0); Mean Corpuscular Hemoglobin 33.1 pg (27.0-33.0); Mean Corpuscular Volume 99.5 fL (80.0-98.0); Mean Platelet Volume 10.1 fL (9.4-12.4); Platelet Count 238 X10*3/uL (160-400); Red Blood Count 3.72 X10*6/uL (4.60-5.80); Red Cell Distribution Width 13.3 % (11.0-16.0); White Blood Count 6.3 X10*3/uL (4.8-10.8)
[2023-09-21 08:14] LABS: Creatinine Urine 169.76 mg/dL; Microalbum/Creatinine Ratio Ur 21.7 ug/mg cr (<30)
[2023-09-21 08:23] LABS: Alanine Aminotransferase 29 U/L (0-40); Albumin Level 4.6 g/dL (3.5-5.0); Alkaline Phosphatase 65 U/L (39-117); Anion Gap 14 (12-20); Aspartate Amino Transferase 31 U/L (5-37); Bilirubin Total 0.7 mg/dL (0.0-1.0); Blood Urea Nitrogen 26 mg/dL (9-16); Calcium 9.8 mg/dL (8.4-10.2); Carbon Dioxide 30 mmol/L (22-29); Chloride 103 mmol/L (96-108); Cholesterol 195 mg/dL (<200); Estimated Glomerular Filt Rate > 60; Glucose Fasting 89 mg/dL (60-99); HDL Cholesterol 71 mg/dL (>40); LDL Cholesterol Calculated 94 mg/dL (<100); Potassium 3.8 mmol/L (3.3-5.1); Sodium 143 mmol/L (135-145); Total Protein 7.3 g/dL (6.5-8.0); Triglycerides 152 mg/dL (<150)
[2023-09-21 09:10] LABS: Prostate Specific Antigen Scr < 0.10 ng/mL (<0.05-4.0)
== END 2023-09-21 06:02 | disposition home or self-care (01) ==
LOC: HO.LAB 06:01
PROVIDERS: PCP Physician Assistant; Visit Provider Physician Assistant
DX: E78.2 Mixed hyperlipidemia (principal); I10 Essential (primary) hypertension; Z12.5 Encounter for screening for malignant neoplasm of prostate
CPT/HCPCS: 36415; 80053; 80061; 82043; 82570; 84153; 85027

== ENCOUNTER 2023-10-13 10:09 | Outpatient (AMB) | payer MEDICARE, SELFPAY ==
[2023-10-13 10:22] VITALS: BP 116/60; PULSE 105; O2SAT 99; BMI 26.4
--- NOTE | 2023-10-13 10:22 | MHC.OFFVIS ---
Vital Signs 10/13/23 10:22 Height 5 ft 9 in Weight 178 lb 9.191 oz BMI 26.4 BP 116/60 Blood Pressure Location Lt brachial Position Sitting Pulse 105 H Pulse Source Monitor Pulse Oximetry (%) 99 Oxygen Delivery Method Room Air Intake Visit Reasons: 1 year follow up, after echo Allergies lisinopril [LISINOPRIL] Allergy (Intermediate, Verified 09/07/23 08:52) ANGIOEDEMA Medication List - Last Reconciled 10/13/23 by Law Ibarra MD ascorbate calcium (vitamin C) 500 mg PO DAILY hydroxychloroquine 200 mg PO BID losartan-hydrochlorothiazide 50-12.5 mg 1 tab PO DAILY 90 days simvastatin 20 mg PO BEDTIME triamcinolone acetonide 0.1% 1 appl topical DAILY 30 days HPI Comments Details: Piter returns for follow-up. In the past, he was seen in consultation regarding an abnormal echocardiogram. That had shown mild LV dysfunction, mild aortic stenosis and moderate mitral annular calcification with mild ascending aortic dilatation. He does have a high pulse rate at times and that might be from alcohol use as he drinks essentially daily. No known coronary disease myocardial infarction. Since last seen, he states he is feeling good. No specific cardiac symptoms or concerns. [facility] Medical History Seronegative rheumatoid arthritis Prostate cancer Gastroesophageal reflux disease Primary osteoarthritis, right hand Primary osteoarthritis, left hand Primary osteoarthritis of knees, bilateral Elevated blood pressure reading in office with diagnosis of hypertension Prostate cancer Osteoarthritis, hand Rheumatoid arthritis Surgical History History of hernia repair H/O removal of cyst Family History Father Myocardial infarction Mother Alzheimer disease Social History Housing: House Alcohol intake: current Alcohol intake frequency: 0-2 drinks per day Alcohol type: beer and hard liquor Patient Tobacco Use Status: Former Tobacco user Quit Date: 1955 Tobacco use type: Cigarette e-Cigarette/Vaping Use: Never Used service: No Current occupational status: retired Cognitive needs: No Hearing needs: No Vision needs: Yes Review of Systems Const Denies weakness ENT Denies dizziness Card Denies chest pain, Denies chest pain with activity, Denies syncope, Denies rapid heart rate, Denies pedal edema, Denies edema, Denies leg edema, Denies lightheadedness, Denies palpitations, Denies dyspnea, Denies dyspnea on exertion and Denies orthopnea Resp Denies cough, Denies dyspnea and Denies dyspnea on exertion GI Denies hematochezia and Denies change in stool character Musc Denies abnormal gait, Denies muscle cramps, Denies muscle weakness, Denies numbness, Denies radiating pain into limb and Denies tingling Neuro Denies abnormal gait, Denies dizziness, Denies syncope, Denies numbness, Denies tingling and Denies weakness Endo Denies palpitations Physical Exam Vital Signs: Last Vital Signs Pulse 105 H 10/13/23 10:22 BP 116/60 10/13/23 10:22 Pulse Ox 99 10/13/23 10:22 Oxygen Delivery Method Room Air 10/13/23 10:22 BMI result Body Mass Index 26.4 Const General: comfortable and no acute distress Orientation/consciousness: patient oriented x3 HEENT Other: Unremarkable Head: Yes normal to inspection Neck Neck: Yes normal visual inspection Chest Chest palpation & inspection: normal inspection of the chest Resp Auscultation: clear to auscultation bilaterally Cardio Palpation: normal PMI Heart sounds: S1 normal heart sound present, S2 normal heart sound present, no gallops, no murmurs and no rubs GI Palpation (GI): Soft to palpation Back/Spine/Pelvis Other: unremarkable Skin General skin exam: no rashes or lesions noted Neuro General: patient oriented x3 Extrem General: Yes normal to inspection Psych Mental Status: mental status grossly normal Office Procedures EKG Details: EKG with sinus tachycardia, 105/Min; voltage criteria for LVH; nonspecific ST-T changes; normal [place]; slight prolongation of corrected QT at 507 milliseconds. [id number], Complete Assessment & Plan Assessment & Plan (1) Cardiomyopathy: Code(s): I42.9 - Cardiomyopathy, unspecified Category: Medical Plan: In the most recent echocardiogram, LVEF 50-55%. Prior to that, 46%. In the perfusion imaging, no clear evidence of any ischemia or infarction. Suspected normal perfusion. LVEF was 54% during stress and 40% during rest. Overall, this could be alcohol induced as he drinks daily. Counseled about that part. Not sure if he will change however. Clinically, he has got no heart failure symptoms or signs. (2) Non-rheumatic aortic stenosis: Code(s): I35.0 - Nonrheumatic aortic (valve) stenosis Category: Medical Plan: Mild stenosis only. Can be followed on echocardiograms. (3) Mitral annular calcification: Code(s): I34.81 - Nonrheumatic mitral (valve) annulus calcification Category: Medical Plan: Severe mitral annular calcification without any valvular dysfunction. Will need monitoring by echo. Again, clinically no symptoms. (4) Ascending aorta dilatation: Code(s): I77.810 - Thoracic aortic ectasia Category: Medical Plan: Ascending aortic size 4.5 cm. Prior to that, 4.2 cm. We will recheck in 6 months. (5) Tachycardia: Code(s): R00.0 - Tachycardia, unspecified Category: Medical Plan: Suspect all related to alcohol. (6) Alcohol use disorder: Code(s): F10.90 - Alcohol use, unspecified, uncomplicated Category: Medical Plan: Per patient, drinks several drinks daily. Has been advised to cut back. Orders: Orders CA echo transthoracic complete 6 Months I77.810 - Thoracic aortic ectasia Coding Level of Care Code Est Pt Level 4 (56638) Diagnoses Cardiomyopathy I42.9 Non-rheumatic aortic stenosis I35.0 Mitral annular calcification I34.81 Ascending aorta dilatation I77.810 Tachycardia R00.0 Alcohol use disorder F10.90 CPT Codes EKG - CPT: 29371-[id number], Complete ([id number])
== END 2023-10-13 10:44 | disposition home or self-care (01) ==
PROVIDERS: PCP Physician Assistant; Visit Provider Internal Medicine
DX: I42.9 Cardiomyopathy, unspecified (principal); I35.0 Nonrheumatic aortic (valve) stenosis; I34.81 Nonrheumatic mitral (valve) annulus calcification; I77.810 Thoracic aortic ectasia; R00.0 Tachycardia, unspecified; F10.90 Alcohol use, unspecified, uncomplicated
CPT/HCPCS: 93010; 99214

== ENCOUNTER → 2023-10-13 10:09 | Outpatient (BNVA) | payer MEDICARE, SELFPAY | PROVIDERS: PCP Physician Assistant; Visit Provider Internal Medicine | DX: I77.810 Thoracic aortic ectasia (principal); I42.9 Cardiomyopathy, unspecified; I35.0 Nonrheumatic aortic (valve) stenosis; I34.81 Nonrheumatic mitral (valve) annulus calcification; R00.0 Tachycardia, unspecified; F10.90 Alcohol use, unspecified, uncomplicated | CPT/HCPCS: 93005; 99212 ==

== ENCOUNTER 2023-12-01 08:52 | Outpatient (AMB) | payer MEDICARE, SELFPAY ==
--- NOTE | 2023-12-01 09:08 | A.OFFVIS_ITS ---
Intake Visit Reasons: 1Y PSA(set) Intake Note: Patient is Present for Follow Up PSA Urology Medication: None Antibiotic Allergies:None Blood Thinners: None Boiler Repair Supervisor Required: No Allergies lisinopril [LISINOPRIL] Allergy (Intermediate, Verified 12/01/23 09:34) ANGIOEDEMA HPI Comments Details: Piter is a pleasant male. He is a patient of Dr Pratt. He is seen for the following urologic conditions - prostate cancer PSA stable May follow-up p.r.n. PCP can follow PSA Prostate cancer high risk, initial therapy external beam radiation with hormones Initial diagnosis 2000 Initial therapy external beam radiation with hormones PSA has remained well controlled Minimal urinary issues denies urgency, frequency, weakness of stream PSA 11/18 <0.1, 05/20 <0.1, <0.1, 12/20 <0.1, 12/21 <0.1 PFSH Medical History Seronegative rheumatoid arthritis Prostate cancer Gastroesophageal reflux disease Primary osteoarthritis, right hand Primary osteoarthritis, left hand Primary osteoarthritis of knees, bilateral Elevated blood pressure reading in office with diagnosis of hypertension Prostate cancer Osteoarthritis, hand Rheumatoid arthritis Surgical History History of hernia repair H/O removal of cyst Family History Father Myocardial infarction Mother Alzheimer disease Social History Housing: House Alcohol intake: current Alcohol intake frequency: 0-2 drinks per day Alcohol type: beer and hard liquor Patient Tobacco Use Status: Former Tobacco user Tobacco use type: Cigarette e-Cigarette/Vaping Use: Never Used service: No Current occupational status: retired Cognitive needs: No Hearing needs: No Vision needs: Yes Review of Systems Const Denies chills and Denies fever(s) Card Reports no additional complaints and Denies syncope Resp Denies cough GI Denies abdominal pain and Denies heartburn Reports as per HPI and Denies change in libido Neuro Denies syncope Psych Denies change in libido Endo Denies change in libido Physical Exam Const General: cooperative, healthy appearing, comfortable and no acute distress Orientation/consciousness: patient oriented x3 HEENT Face and sinus: Yes normal facial exam Mouth: moist mucous membranes Neck Neck: Yes normal visual inspection, Yes full ROM and Yes trachea midline Chest Chest palpation & inspection: normal inspection of the chest Resp Effort & Inspection: normal respiratory effort, able to speak in complete sentences and no respiratory distress GI Inspection: Yes normal to inspection Back/Spine/Pelvis Cervical Spine: normal cervical lordosis Thoracic/Lumbar Spine: thoracic and lumbar spine normal to inspection Skin General skin exam: no rashes or lesions noted Neuro General: patient oriented x3, gait normal, tone normal and moves all extremities Extrem General: Yes normal to inspection and Yes capillary refill normal Assessment & Plan Assessment & Plan (1) Prostate cancer: Comment: High risk, initial therapy XRT with GnRH 2 years 2000 Code(s): C61 - Malignant neoplasm of prostate Category: Medical Plan P.r.n. follow-up Patient Instructions: Imaging studies, laboratory and physical exam results were discussed and reviewed in detail. No major barriers to patient understanding were identified. An opportunity to ask questions regarding the treatment plan was provided. All questions were answered. The patient expressed understanding and agreement with the above treatment plan. The patient is aware they should contact our office by phone for worsening of their current condition or the appearance of new urologic symptoms. Compliance is encouraged with any medications and followup testing that is ordered. It is a privilege to participate in the urologic care of your patient. If you have any questions or concerns regarding treatment for the above conditions, or other urologic issues, please do not hesitate to contact me. The office telephone contact is [phone]. This note is constructed using voice recognition software. While every effort has been made to ensure accuracy bridge attacher errors may have been included. Yours sincerely, Dr Trever Larios MD, [facility] - Urology Providers of Expert, Compassionate Care for the Genitourinary System Coding Level of Care Code Est Pt Level 4 (58575) Diagnoses Prostate cancer C61
== END 2023-12-01 09:57 | disposition home or self-care (01) ==
PROVIDERS: PCP Physician Assistant; Visit Provider Urology
DX: Z85.46 Personal history of malignant neoplasm of prostate (principal)
CPT/HCPCS: 99213

== ENCOUNTER → 2023-12-01 08:52 | Outpatient (BNVA) | payer MEDICARE, SELFPAY | PROVIDERS: PCP Physician Assistant; Visit Provider Urology | DX: C61 Malignant neoplasm of prostate (principal); Z92.3 Personal history of irradiation | CPT/HCPCS: 99212 ==

== ENCOUNTER 2023-12-08 07:25 | Outpatient (AMB) | payer MEDICARE, SELFPAY ==
--- NOTE | 2023-12-08 07:30 | MHC.OFFVIS ---
Vital Signs 12/08/23 07:35 Height 5 ft 9 in Weight 176 lb 12.972 oz BMI 26.1 BP 115/60 Blood Pressure Location Lt brachial Position Sitting Pulse 72 Pulse Source Pulse Oximeter Pulse Oximetry (%) 96 Oxygen Delivery Method Room Air Intake Visit Reasons: rheumatoid arthritis/CM Intake Note: Patient presents for rheumatoid arthritis. Allergies lisinopril [LISINOPRIL] Allergy (Intermediate, Verified 12/08/23 07:41) ANGIOEDEMA Medication List - Last Reconciled 12/08/23 by Marcy Hull MD ascorbate calcium (vitamin C) 500 mg PO DAILY hydroxychloroquine 200 mg PO BID losartan-hydrochlorothiazide 50-12.5 mg 1 tab PO DAILY 90 days simvastatin 20 mg PO BEDTIME triamcinolone acetonide 0.1% 1 appl topical DAILY 30 days HPI Comments Details: 83yoM presents for follow-up of seronegative rheumatoid arthritis and erosive osteoarthritis. Last seen Nicol Reddy September 2022 On Plaquenil 400 mg daily, tolerating the medication without issue. Has been working on cutting down on drinking. He stopped beer drinking. Patient reports that he continues to feel well. He denies any significant joint pain, prolonged morning stiffness, joint swelling. He is able to complete his activities of daily living without difficulty. He frequently walks and exercises on a bike riding 1 mile a day. He denies any concerns today. [facility] Medical History Seronegative rheumatoid arthritis Prostate cancer Gastroesophageal reflux disease Primary osteoarthritis, right hand Primary osteoarthritis, left hand Primary osteoarthritis of knees, bilateral Elevated blood pressure reading in office with diagnosis of hypertension Prostate cancer Osteoarthritis, hand Rheumatoid arthritis Surgical History History of hernia repair H/O removal of cyst Family History Father Myocardial infarction Mother Alzheimer disease Social History Housing: House Alcohol intake: current Alcohol intake frequency: 0-2 drinks per day Alcohol type: beer and hard liquor Patient Tobacco Use Status: Former Tobacco user Tobacco use type: Cigarette e-Cigarette/Vaping Use: Never Used service: No Current occupational status: retired Cognitive needs: No Hearing needs: No Vision needs: Yes Review of Systems Musc Denies arthralgias, Denies joint swelling and Denies stiffness Physical Exam Vital Signs: Last Vital Signs Pulse 72 12/08/23 07:35 BP 115/60 12/08/23 07:35 Pulse Ox 96 12/08/23 07:35 Oxygen Delivery Method Room Air 12/08/23 07:35 BMI result Body Mass Index 26.1 Const General: cooperative, healthy appearing and comfortable Nutritional Appearance: overweight Orientation/consciousness: patient oriented x3 Limitations: no limitations HEENT Head: Yes normocephalic and Yes atraumatic Mouth: moist mucous membranes Resp Effort & Inspection: normal respiratory effort and able to speak in complete sentences Cardio Rate: regular rate GI Palpation (GI): Soft to palpation and nontender Skin Other: Few superficial bruises (senile purpura) on forearms Neuro General: patient oriented x3 Extrem Other: Significant osteoarthritic changes of both hands with prominent Heberden's and Domingo's nodes Mildly swollen left 4th PIP associated with minimal tenderness No elbow pain with full flexion and extension bilaterally Normal range of motion of shoulders without pain No knee pain with flexion-extension No ankle synovitis bilaterally Normal nailfold capillaroscopy Assessment & Plan Assessment & Plan (1) Seronegative rheumatoid arthritis: Comment: OA in the hands as well. MTX [id number] stopped due to alcohol use Hydroxychloroquine started 12/2017 Code(s): M06.00 - Rheumatoid arthritis without rheumatoid factor, unspecified site Category: Medical Plan: Patient with seronegative rheumatoid arthritis as well as erosive osteoarthritis. On Plaquenil 400 mg daily (200mg BID).?Last visit in clinic was 1 year ago. His disease has been well controlled. He will continue Plaquenil at his current dose.? Labs before next visit in 1 year (2) Long-term use of hydroxychloroquine: Code(s): Z79.899 - Other watermelon harvesting supervisor (current) drug therapy Category: Medical Plan: Patient does not remember the name of his signaling project engineer over the last pulmonology visit. Advised patient that he should follow-up with his signaling project engineer regularly. At least once yearly. Advised patient to call our office to give us the name of his signaling project engineer once he gets home so we can request most recent office notes Plan I spent 26 minutes reviewing patient's chart, evaluating patient, ordering diagnostic workup, counseling patient and documenting in the chart Orders: Orders Complete Blood Count Auto Diff 1 Year M06.00 - Rheumatoid arthritis without rheumatoid factor, unspecified site, Z79.899 - Other watermelon harvesting supervisor (current) drug therapy Erythrocyte Sedimentation Rate 1 Year M06.00 - Rheumatoid arthritis without rheumatoid factor, unspecified site, Z79.899 - Other nursing home (current) drug therapy Comprehensive Met. Panel 1 Year M06.00 - Rheumatoid arthritis without rheumatoid factor, unspecified site, Z79.899 - Other nursing home (current) drug therapy C Reactive Protein 1 Year M06.00 - Rheumatoid arthritis without rheumatoid factor, unspecified site, Z79.899 - Other nursing home (current) drug therapy Coding Level of Care Code Est Pt Level 4 (43058) Diagnoses Seronegative rheumatoid arthritis M06.00 Long-term use of hydroxychloroquine Z79.899
[2023-12-08 07:35] VITALS: BP 115/60; PULSE 72; O2SAT 96; BMI 26.1
== END 2023-12-08 08:07 | disposition home or self-care (01) ==
PROVIDERS: PCP Physician Assistant; Visit Provider Student in an Organized Health Care Education/Training Program
DX: M06.00 Rheumatoid arthritis without rheumatoid factor, unspecified site (principal); Z79.899 Other long term (current) drug therapy
CPT/HCPCS: 99214

== ENCOUNTER → 2023-12-08 07:25 | Outpatient (BNVA) | payer MEDICARE, SELFPAY | PROVIDERS: PCP Physician Assistant; Visit Provider Student in an Organized Health Care Education/Training Program | DX: M06.00 Rheumatoid arthritis without rheumatoid factor, unspecified site (principal); M19.042 Primary osteoarthritis, left hand; M19.041 Primary osteoarthritis, right hand; Z79.899 Other long term (current) drug therapy | CPT/HCPCS: 99212 ==

== ENCOUNTER 2024-03-08 08:04 | Outpatient (AMB) | payer MEDICARE, SELFPAY ==
[2024-03-08 08:20] VITALS: BP 140/80; PULSE 101; O2SAT 97; BMI 26.0
--- NOTE | 2024-03-08 08:20 | MHC.PC.OV ---
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: No Allergies lisinopril [LISINOPRIL] Allergy (Intermediate, Verified 03/08/24 08:35) ANGIOEDEMA Medication List - Last Reconciled 03/08/24 by Prabhu Pratt PA-C ascorbate calcium (vitamin C) 500 mg PO DAILY hydroxychloroquine 200 mg PO BID losartan-hydrochlorothiazide 50-12.5 mg 1 tab PO DAILY 90 days simvastatin 20 mg PO BEDTIME triamcinolone acetonide 0.1% 1 appl topical DAILY 30 days Tobacco use date assessed: 09/07/23 Fall risk assessment: No Falls in past year Last assessed Fall Risk: 03/08/24 Dental Screening Dental Screen Date: 09/07/23 HPI f/u HTN/ RA HPI Details Patient is an 84-year-old male here today for follow-up visit.? Patient has a past medical history significant for prostate cancer, seronegative rheumatoid arthritis, hypertension and hyperlipidemia, cardiomyopathy . Cardiomyopathy: Patient recently followed up with Cardiology and underwent echocardiogram which did show mildly decreased systolic function, Holter monitor with did show several PACs and PVCs. Underwent a nuclear stress test as well without significant findings. Otherwise patient reports he feels well without any overt signs of Congestive heart failure. Does report drinking 3-4 shots of camelia per day. .. Seronegative rheumatoid arthritis:? Was followed by Rheumatology , continues on Plaquenil for his RA. He denies any significant arthralgias. .. Prostate cancer:? Patient followed by a urologist and gets yearly PSAs.? Prostate cancer has been in remission.? PSAs have been nondetectable .. Hypertension:? Blood pressure acceptable today in office.? Otherwise patient asymptomatic without chest discomfort, dizziness or headaches. Laboratory Tests 08/25/22 09/21/23 06:09 06:15 RBC 3.72 L Hgb 12.3 L Cholesterol 199 195 PSA Screen < 0.10 PFSH Medical History Seronegative rheumatoid arthritis Prostate cancer Gastroesophageal reflux disease Primary osteoarthritis, right hand Primary osteoarthritis, left hand Primary osteoarthritis of knees, bilateral Elevated blood pressure reading in office with diagnosis of hypertension Prostate cancer Osteoarthritis, hand Rheumatoid arthritis Surgical History History of hernia repair H/O removal of cyst Family History Father Myocardial infarction Mother Alzheimer disease Social History Housing: House Alcohol intake: current Alcohol intake frequency: 0-2 drinks per day Alcohol type: beer and hard liquor Patient Tobacco Use Status: Former Tobacco user Tobacco use type: Cigarette e-Cigarette/Vaping Use: Never Used service: No Current occupational status: retired Cognitive needs: No Hearing needs: No Vision needs: Yes Questionnaire Thrive Questionnaire Date Thrive assessed: 09/07/23 Are you currently unemployed and looking for a job?: No AUDIT C Alcohol Use Questionnaire (AUDIT-C) 1. How often do you have a drink containing alcohol?: 4 or more times a week 2. How many drinks containing alcohol do you have on a typical day when you are drinking?: 3 or 4 3. How often do you have six or more drinks on one occasion?: Daily or almost daily Total Score: 9 MARY-7 AMB Questionnaire MARY-7 Date MARY - 7 assessed: 09/07/23 Source: Developed by Drs. Josh Saunders, Joyce Lobo, Umesh Romero and colleagues, with an educational mt from [employer]. Review of Systems Const Denies headache(s) Eyes Denies loss of vision ENT Denies vertigo, Denies dizziness, Denies headache(s) and Denies sore throat Card Denies chest pain, Denies leg edema and Denies lightheadedness Resp Denies cough, Denies hemoptysis and Denies wheezing GI Denies abdominal pain, Denies melena, Denies constipation, Denies diarrhea and Denies vomiting Denies dysuria, Denies urinary frequency and Denies urinary urgency Musc Denies arthralgias, Denies joint swelling, Denies numbness and Denies tingling Neuro Denies Abnormal speech present, Denies behavioral changes, Denies vertigo, Denies dizziness, Denies headache(s), Denies loss of vision, Denies memory loss, Denies numbness and Denies tingling Psych Denies anxiety, Denies behavioral changes, Denies depression, Denies memory loss and Denies panic attacks Tomy/Lymph Denies easy bleeding and Denies easy bruising Aller/Immun Denies wheezing Physical exam (Primary Care) Vital Signs: Last Vital Signs Pulse 101 H 03/08/24 08:20 BP 140/80 H 03/08/24 08:20 Pulse Ox 97 03/08/24 08:20 Oxygen Delivery Method Room Air 03/08/24 08:20 BMI result Body Mass Index 26.0 Tobacco/Smoking Status: Tobacco use Status Tobacco use date assessed 09/07/23 03/08/24 08:28 Patient Tobacco Use Status Former Tobacco user 03/08/24 08:28 Tobacco use type Cigarette 03/08/24 08:28 e-Cigarette/Vaping Use Never Used 03/08/24 08:28 Thrive Assessment: Date of Thrive Assessment Date Thrive assessed 09/07/23 03/08/24 08:28 Const General: healthy appearing, no acute distress, alert and awake Nutritional Appearance: well nourished Orientation/consciousness: oriented to person, oriented to place and oriented to time HENMT Ears: TM's normal bilaterally General nose exam: Normal nasal mucous membranes and turbinates present Eyes Conjunctivae: conjunctivae normal Sclerae: sclerae normal Pupils: Equal, round and reactive pupils present Neck Neck: Yes no lymphadenopathy and Yes no JVD Thyroid: Thyroid normal Carotids: no bruits Resp Effort & Inspection: normal respiratory effort and not tachypneic Auscultation: no crackles, no rales, no rhonchi and no wheezes Cardio Rate: regular rate Rhythm: regular rhythm Heart sounds: no murmurs and normal S1 and S2 GI Palpation (GI): Soft to palpation, nontender, no hepatomegaly and no splenomegaly Auscultation: normal bowel sounds Skin General skin exam: no rashes or lesions noted and dry skin Neuro General: oriented to person, oriented to place and oriented to time Cranial nerves: Yes Equal, round and reactive pupils present Speech: No Abnormal speech present Gait exam (Neuro): Normal gait present Motor exam (neuro): no tremor noted Extrem Right upper extremity: full ROM Left upper extremity: full ROM Right lower extremity: full ROM; no edema Left lower extremity: full ROM; no edema Psych Mental Status: mental status grossly normal Speech and movement: Normal speech and movement present Affect: normal affect Attitude: cooperative Thought process: Normal thought process present Office Procedures Flu Questionnaire Does the patient have a severe egg allergy?: No Does the patient have severe life threatening allergies?: No Does the patient have a fever or illness today?: No Has the patient ever had Guillain-[place] Syndrome?: No Has the patient ever had any past reaction to a flu shot?: No Immunizations Fluarix Triv [id number] (PF) 45 mcg (15 mcg x 3)/0.5 mL IM syringe Performing Provider: Prabhu Pratt PA-C [facility] [place] [facility] Administered by: AMANDA Calderón on 03/08/24 08:49 Dose Route Admin Location Dispensed Lot Number Expiration Date NDC Assistant Research Scientist 0.5 mL IM Left Deltoid 0.5 mL [id number] 11/27/24 [id number] [employer] VIS Given Date VIS Provided VIS Publication Date 03/08/24 Single Vaccine 21 Eligibility Eligibility Date Funding Source Not [facility] Eligible 03/08/24 Private Coding Level of Care Code Est Pt Level 4 (29762) Diagnoses Mixed hyperlipidemia E78.2 Hyperlipidemia type: mixed hyperlipidemia Primary hypertension I10 Hypertension type: primary hypertension Prostate cancer C61 Alcohol use disorder F10.90 Assessment & Plan Assessment & Plan (1) HLD (hyperlipidemia): Code(s): E78.5 - Hyperlipidemia, unspecified Category: Medical Qualifiers: Hyperlipidemia type: mixed hyperlipidemia Qualified Code(s): E78.2 - Mixed hyperlipidemia Plan: Patient's most recent lipid panel showing excellent control of his total cholesterol and LDL. He continues on simvastatin 20 mg without any side effect. Goal LDL is to remain below 100 (2) HTN (hypertension): Code(s): I10 - Essential (primary) hypertension Category: Medical Qualifiers: Hypertension type: primary hypertension Qualified Code(s): I10 - Essential (primary) hypertension Plan: Patient's blood pressure slightly elevated today in office. He reports he has been nervous coming in the office. He does not regularly monitor his blood pressure at home. He reports he is consistent with the use of losartan hydrochlorothiazide. Goal blood pressures to be below 140/90 (3) Prostate cancer: Comment: High risk, initial therapy XRT with GnRH 2 years 2000 Code(s): C61 - Malignant neoplasm of prostate Category: Medical Plan: Patient continues to follow urology on an annual basis. Most recent PSAs have been undetectable (4) Alcohol use disorder: Code(s): F10.90 - Alcohol use, unspecified, uncomplicated Category: Medical Plan: Patient does admit to having a few shots of bourbon or whiskey per day. He does understand he needs to cut down Orders: Orders Microalbumin, Random (w Creat) Today I10 - Essential (primary) hypertension Complete Blood Count no Diff Today I10 - Essential (primary) hypertension Lipid Panel Today E78.2 - Mixed hyperlipidemia Comprehensive [place]. Panel Fast Today I10 - Essential (primary) hypertension Influenza 4128-1331 Immunization Today Z23 - Encounter for immunization Patient Instructions: Goal: Blood pressure to remain below 140/90, LDL to be below 100 Barriers: Adherence to physical activity and healthy eating habits
== END 2024-03-08 08:57 | disposition home or self-care (01) ==
PROVIDERS: PCP Physician Assistant; Visit Provider Physician Assistant
DX: E78.2 Mixed hyperlipidemia (principal); I10 Essential (primary) hypertension; C61 Malignant neoplasm of prostate; F10.90 Alcohol use, unspecified, uncomplicated; Z23 Encounter for immunization

== ENCOUNTER → 2024-03-08 08:04 | Outpatient (BNVA) | payer MEDICARE, SELFPAY | PROVIDERS: PCP Physician Assistant; Visit Provider Physician Assistant | DX: Z23 Encounter for immunization (principal); E78.2 Mixed hyperlipidemia; I10 Essential (primary) hypertension; C61 Malignant neoplasm of prostate; F10.90 Alcohol use, unspecified, uncomplicated | CPT/HCPCS: 90471; 90656; 99212 ==

== ENCOUNTER → 2024-04-12 08:37 | Outpatient (REF) | payer MEDICARE, SELFPAY ==
--- NOTE | 2024-04-12 08:40 | CA_ITS ---
Transthoracic Echocardiogram Patient (Last, First, Middle): Piter Barber, Gender: Male Date of : 1940 Age: 84 Procedure Date: 04/12/2024 Procedure Type: Transthoracic Echocardiogram Location: OP Height: 172.72 cm Weight: 78.02 kg BSA: 1.92 m2 Heart Rate: 81 bpm BP: 142 / [address] Driver: CARLEEN Referring MD: Law Ibarra MD Dsp Engineer: Musa Lu MD Symptoms: I77.810 - Thoracic aortic ectasia Study Quality: Fair ECG Rhythm: Sinus Conclusions: - 1. Low normal LV ejection fraction 50-55% with grade 1 diastolic dysfunction 2. Mildly dilated left atrium 3. Mild aortic regurgitation early mild aortic stenosis noted 4. Normal RV systolic pressure 5. 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 The quality of the study was technically difficult. The study quality is limited by lung artifact. Left Ventricle Normal left ventricular cavity size. There is normal left ventricular wall thickness. The left ventricular systolic function is low normal. The visually estimated ejection fraction is between 50-55%. Spectral Doppler is indicative of an impaired relaxation filling pattern. E/E prime ratio is <8, consistent with normal filling pressures. Evidence suggests grade I (mild) diastolic dysfunction. Right Ventricle The right ventricle was not well visualized. Atria The left atrium is mildly dilated. Interatrial shunt cannot be excluded. The right atrium was not well visualized. Aortic Valve The aortic valve was not well visualized. There is mild calcification of the aortic valve. There is mild thickening of the aortic valve. There is mild aortic valve stenosis. There is mild aortic valve regurgitation. Mitral Valve There is mild anterior and moderate posterior mitral leaflet thickening. There is moderate mitral annular calcification. There is trace mitral valve regurgitation. There is no mitral valve stenosis. Pulmonic Valve The pulmonic valve was not well visualized. Tricuspid Valve Likely normal tricuspid valve structure and function. There is trace tricuspid valve regurgitation. The right ventricular systolic pressure is normal. The right ventricular systolic pressure is 24 mmHg. Normal right atrial pressure. There is no evidence of pulmonary hypertension. Great Vessels The pulmonary artery was not well visualized. There is moderate dilatation of the ascending aorta measuring 4.70 cm. Venous The inferior vena cava is normal in size and collapses greater than 50% with inspiration. Pericardium/Pleural The pericardium was not well visualized. Prior Study Comparison Changes noted compared to prior study dated: 08/31/2023. ascending aorta is further dilated at 4.7 cm Measurements 2D Linear Measurements IVSd: 1.15 0.6-0.9/0.6-1.0 cm LVIDd: 5.37 3.9-5.3/4.2-5.9 cm LVIDd Index: 2.80 2.4-3.2/2.2-3.1 cm/m2 LVIDs: 4.10 2.0-3.6 cm LVPWd: 1.09 0.7-1.1 cm LA Diam: 3.80 2.7-3.8/3.0-4.0 cm LAIDs Index: 1.98 1.5-2.3 cm/m2 LV Mass: 297.29 67-162/88-224 g LV Mass Index: 154.84 43-95/49-115 g/m2 LVOT Diam: 2.60 3.0+(-)1.3 cm Mitral Valve MV VTI: 0.38 MV Pk Oliverio: 1.34 MV Mn Oliverio: 0.78 MV Pk Grad: 7.00 MV Mn Grad: 3.00 MV Pk E: 0.81 MV PK A: 1.30 MV Decel Time: 309.00 E/A: 0.60 E'Lateral: 10.80 E'Medial: 5.98 E/E' Med: 13.50 E/E' Lat: 7.50 PHT: 91.00 MVA PHT: 2.42 MVA Continuity: 2.80 Decel [place]: 2.62 Aortic Valve AoV Pk Oliverio: 2.18 AoV Mn Oliverio: 1.47 AoV VTI: 0.41 AoV Pk Grad: 19.00 Aov Mn Grad: 10.00 LLOIS Cont.VTI: 2.60 LVOT LVOT Pk Oliverio: 0.94 LVOT Mn Oliverio: 0.64 LVOT VTI: 0.20 LVOT Pk Grad: 4.00 LVOT Mn Grad: 2.00 LVOT Diam: 2.60 LVOT Area: 5.31 Diastolic Function MV Pk E: 0.81 MV Pk A: 1.30 E/A: 0.60 E'Medial: 5.98 E/E' Med: 13.50 E' Laterial: 10.80 E/E' Lat: 7.50 Right Ventricle TAPSE (mm): 22.80 TVS' Oliverio: 11.90 Tricuspid Valve TR Pk Oliverio: 2.31 TR Pk Grad: 21.00 RA Press: 3.00 RVSP: 24.00 Great Vessels Aorta Sinus of Valsalva: 4.00 2.0-3.5 cm Ao Asc: 4.70 2.1-3.4 cm Ao Arch: 3.60 Pulmonary Valve PV Pk Oliverio: 0.81 Peak PV Grad: 3.00 Updated in Other Vendor System with Status of Final Musa Lu MD electronically signed on 04/12/2024 11:18:38 AM with status of Final
== END ==
LOC: HO.CARD 08:37
PROVIDERS: PCP Physician Assistant; Visit Provider Internal Medicine
DX: I77.810 Thoracic aortic ectasia (principal)
CPT/HCPCS: 93306; Q9957

== ENCOUNTER → 2024-04-12 08:40 | Outpatient (BNV) | payer MEDICARE, SELFPAY | PROVIDERS: PCP Physician Assistant; Visit Provider Internal Medicine Cardiovascular Disease | DX: I35.2 Nonrheumatic aortic (valve) stenosis with insufficiency (principal); I34.81 Nonrheumatic mitral (valve) annulus calcification; I51.89 Other ill-defined heart diseases | CPT/HCPCS: 93306 ==

== ENCOUNTER 2024-06-13 09:03 | Outpatient (REF) | payer MEDICARE, SELFPAY ==
--- NOTE | ~2024-06-13 | CT_ITS ---
CLINICAL HISTORY: I77.810 - Thoracic aortic ectasia CT angiography chest with contrast. 3D Postprocessing. Comparison: None Findings: The heart is normal size. RV/LV ratio is normal. Ascending thoracic aorta measures 4.1 x 4.1 cm (sagittal by coronal). Minimal atherosclerosis. There is normal branching pattern. Great vessels are patent. Pulmonary arteries are not adequately opacified to assess for embolus. No enlarged mediastinal or hilar lymph nodes. Elevated left hemidiaphragm. Mild subsegmental atelectasis in the left lower lobe. No consolidation, pleural effusion or pneumothorax. The visualized upper abdomen is unremarkable. Degenerative changes of the spine. IMPRESSION: 1. Ascending thoracic aorta measures 4.1 cm. 2. No acute cardiopulmonary findings. This document has been electronically signed by: Yfn Paula MD on 06/14/2024 18:17:07
[2024-06-13 09:52] LABS: Anion Gap 13 (12-20); Blood Urea Nitrogen 20 mg/dL (9-16); Calcium 9.7 mg/dL (8.4-10.2); Carbon Dioxide 29 mmol/L (22-29); Chloride 104 mmol/L (96-108); Estimated Glomerular Filt Rate > 60; Glucose Random 107 mg/dL (60-115); Potassium 4.3 mmol/L (3.3-5.1); Sodium 142 mmol/L (135-145)
[2024-06-13] MEDS: iohexoL 350 MG/ML 75 ML INFUS..BTL 70 ML IV (10:44)
== END 2024-06-13 09:04 | disposition home or self-care (01) ==
LOC: HO.CT 09:03
PROVIDERS: PCP Physician Assistant; Visit Provider Internal Medicine
DX: I77.810 Thoracic aortic ectasia (principal)
CPT/HCPCS: 36415; 71275; 80048; Q9967

== ENCOUNTER → 2024-06-13 09:08 | Outpatient (BNV) | payer MEDICARE, SELFPAY | PROVIDERS: PCP Physician Assistant; Visit Provider Radiology Diagnostic Radiology | DX: I77.810 Thoracic aortic ectasia (principal) | CPT/HCPCS: 71275 ==

== ENCOUNTER 2024-09-06 08:01 | Outpatient (AMB) | payer MEDICARE, SELFPAY ==
[2024-09-06 08:08] VITALS: BP 134/76; PULSE 59; O2SAT 96; BMI 28.0
--- NOTE | 2024-09-06 08:08 | MHC.PC.OV ---
Vital Signs 09/06/24 08:08 Height 5 ft 7 in Weight 179 lb BMI 28.0 BP 134/76 Blood Pressure Location Lt brachial Position Sitting Pulse 59 Pulse Source Pulse Oximeter Pulse Oximetry (%) 96 Oxygen Delivery Method Room Air Intake Visit Reasons: f/u HTN/ HLD/ Arthritis - see comments Allergies lisinopril [LISINOPRIL] Allergy (Intermediate, Verified 09/06/24 08:16) ANGIOEDEMA Medication List - Last Reconciled 09/06/24 by Prabhu Pratt PA-C ascorbate calcium (vitamin C) 500 mg PO DAILY hydroxychloroquine 200 mg PO BID losartan-hydrochlorothiazide 50-12.5 mg 1 tab PO DAILY 90 days simvastatin 20 mg PO BEDTIME triamcinolone acetonide 0.1% 1 appl topical DAILY 30 days Tobacco use date assessed: 09/06/24 Fall risk assessment: No Falls in past year Last assessed Fall Risk: 09/06/24 Dental Screening Dental Screen Date: 09/06/24 Did you have a dental visit in the last 12 months?: No Did you have a dental problem in the last 6 months where you did not have access to dental care?: No Was dental information given to patient?: No HPI f/u HTN/ HLD/ Arthritis - see comments HPI Details Patient is an 84-year-old male here today for follow-up visit.? Patient has a past medical history significant for prostate cancer, seronegative rheumatoid arthritis, hypertension and hyperlipidemia, cardiomyopathy . Cardiomyopathy: Patient recently followed up with Cardiology and underwent echocardiogram which did show mildly decreased systolic function, Holter monitor with did show several PACs and PVCs. Underwent a nuclear stress test as well without significant findings. Otherwise patient reports he feels well without any overt signs of Congestive heart failure. 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 Recent CTA Chest showing thoracic aortic dilation at 4.1 cm. Unfortunately lost follow-up with Cardiology. Does report drinking 3-4 shots of camelia per day. .. Seronegative rheumatoid arthritis:? Was followed by Rheumatology , continues on Plaquenil for his RA. He denies any significant arthralgias. .. Prostate cancer:? Patient followed by a urologist and gets yearly PSAs.? Prostate cancer has been in remission.? PSAs have been nondetectable .. Hypertension:? Blood pressure acceptable today in office.? Otherwise patient asymptomatic without chest discomfort, dizziness or headaches. Laboratory Tests 06/13/24 09:24 Creatinine 1.10 [facility] Medical History Seronegative rheumatoid arthritis Prostate cancer Gastroesophageal reflux disease Primary osteoarthritis, right hand Primary osteoarthritis, left hand Primary osteoarthritis of knees, bilateral Elevated blood pressure reading in office with diagnosis of hypertension Prostate cancer Osteoarthritis, hand Rheumatoid arthritis Surgical History History of hernia repair H/O removal of cyst Family History Father Myocardial infarction Mother Alzheimer disease Social History Housing: House Alcohol intake: current Alcohol intake frequency: 0-2 drinks per day Alcohol type: beer and hard liquor Patient Tobacco Use Status: Former Tobacco user Tobacco use type: Cigarette e-Cigarette/Vaping Use: Never Used Second Hand Smoke Exposure: No service: No Current occupational status: retired Cognitive needs: No Hearing needs: No Vision needs: Yes Questionnaire PHQ-9 Over the last 2 weeks, how often have you been bothered by any of the following problems? 1. Little interest or pleasure in doing things: not at all 2. Feeling down, depressed, or hopeless: not at all 3. Trouble falling or staying asleep, or sleeping too much: not at all 4. Feeling tired or having little energy: not at all 5. Poor appetite or overeating: not at all 6. Feeling bad about yourself - or that you are a failure or have let yourself or your family down: not at all 7. Trouble concentrating on things, such as reading the newspaper or watching television: not at all 8. Moving or speaking so slowly that other people could have noticed. Or the opposite - being so fidgety or restless that you have been moving around a lot more than usual: not at all 9. Thoughts that you would be better off or of hurting yourself in some way: not at all Total score: 0 Depression Screening Interpretation: Negative Depression Screening Done: Yes 96288 - PHQ-9 Billing: Yes Source: Developed by Drs. Josh Saunders, Umesh Manuel and colleagues, with an educational mt from [employer]. Thrive Questionnaire Date Thrive assessed: 09/06/24 I am a: Patient What is your living situation today?: I have a steady place to live Within the past 12 months, did the food you bought not last and you didn't have the money to get more?: Never true Within the past 12 months, did you worry whether your food would run out before you got money to buy more?: Never true Do you have trouble paying for medicines?: No Do you have trouble getting transportation to medical appointments?: No Do you have trouble paying your heating and electricity bill?: No Do you have trouble taking care of your child, family member or friend?: No Do you have trouble with day-to-day activities such as bathing, preparing meals, shopping, managing finances, etc.?: No Are you currently unemployed and looking for a job?: No Are you interested in more education?: No Currently or been in a relationship where the following occur: No concerns reported THRIVE Score: 0 AUDIT C Alcohol Use Questionnaire (AUDIT-C) 1. How often do you have a drink containing alcohol?: 4 or more times a week 2. How many drinks containing alcohol do you have on a typical day when you are drinking?: 3 or 4 3. How often do you have six or more drinks on one occasion?: Daily or almost daily Total Score: 9 MARY-7 AMB Questionnaire MARY-7 Date MARY - 7 assessed: 09/06/24 Feeling nervous, anxious, or on edge: 0 = Not at all Not being able to stop or control worryin = Not at all Worrying too much about different things: 0 = Not at all Trouble relaxin = Not at all Being so restless that it is hard to sit still: 0 = Not at all Becoming easily annoyed or irritable: 0 = Not at all Feeling afraid as if something awful might happen: 0 = Not at all Total MARY-7 score (0-4 normal; 5-9 mild; 10-14 moderate; 15-21 severe): 0 Source: Developed by Joyce Pinzon Kurt Kroenke and colleagues, with an educational mt from [employer]. MARY-7 Assessment Billing MARY-7 Assessment Tool: MARY-7 Assessment 71601 Review of Systems Const Denies headache(s) Eyes Denies loss of vision ENT Denies vertigo, Denies dizziness, Denies headache(s) and Denies sore throat Card Denies chest pain, Denies leg edema and Denies lightheadedness Resp Denies cough, Denies hemoptysis and Denies wheezing GI Denies abdominal pain, Denies melena, Denies constipation, Denies diarrhea and Denies vomiting Denies dysuria, Denies urinary frequency and Denies urinary urgency Musc Denies arthralgias, Denies joint swelling, Denies numbness and Denies tingling Neuro Denies Abnormal speech present, Denies behavioral changes, Denies vertigo, Denies dizziness, Denies headache(s), Denies loss of vision, Denies memory loss, Denies numbness and Denies tingling Psych Denies anxiety, Denies behavioral changes, Denies depression, Denies memory loss and Denies panic attacks Tomy/Lymph Denies easy bleeding and Denies easy bruising Aller/Immun Denies wheezing Physical exam (Primary Care) Vital Signs: Last Vital Signs Pulse 59 09/06/24 08:08 BP 134/76 09/06/24 08:08 Pulse Ox 96 09/06/24 08:08 Oxygen Delivery Method Room Air 09/06/24 08:08 BMI result Body Mass Index 28.0 Tobacco/Smoking Status: Tobacco use Status Tobacco use date assessed 09/06/24 09/06/24 08:14 Patient Tobacco Use Status Former Tobacco user 09/06/24 08:14 Tobacco use type Cigarette 09/06/24 08:14 e-Cigarette/Vaping Use Never Used 09/06/24 08:14 PHQ-9: PHQ-9 Score PHQ-9: Total score 0 09/06/24 08:35 Depression Screening Interpretation: Negative Thrive Assessment: Date of Thrive Assessment Date Thrive assessed 09/06/24 09/06/24 08:14 Currently or been in a relationship where the following occur: No concerns reported Const General: healthy appearing, no acute distress, alert and awake Nutritional Appearance: well nourished Orientation/consciousness: oriented to person, oriented to place and oriented to time HENMT Ears: TM's normal bilaterally General nose exam: Normal nasal mucous membranes and turbinates present Eyes Conjunctivae: conjunctivae normal Sclerae: sclerae normal Pupils: Equal, round and reactive pupils present Neck Neck: Yes no lymphadenopathy and Yes no JVD Thyroid: Thyroid normal Carotids: no bruits Resp Effort & Inspection: normal respiratory effort and not tachypneic Auscultation: no crackles, no rales, no rhonchi and no wheezes Cardio Rate: regular rate Rhythm: regular rhythm Heart sounds: no murmurs and normal S1 and S2 GI Palpation (GI): Soft to palpation, nontender, no hepatomegaly and no splenomegaly Auscultation: normal bowel sounds Skin General skin exam: no rashes or lesions noted and dry skin Neuro General: oriented to person, oriented to place and oriented to time Cranial nerves: Yes Equal, round and reactive pupils present Speech: No Abnormal speech present Gait exam (Neuro): Normal gait present Motor exam (neuro): no tremor noted Extrem Right upper extremity: full ROM Left upper extremity: full ROM Right lower extremity: full ROM; no edema Left lower extremity: full ROM; no edema Psych Mental Status: mental status grossly normal Speech and movement: Normal speech and movement present Affect: normal affect Attitude: cooperative Thought process: Normal thought process present Immunizations pneumoc 20-rl conj-dip cr(PF) 0.5 mL IM syringe Performing Provider: Prabhu Pratt PA-C [facility] Administered by: Rosemary Dunham CMA on 09/06/24 08:35 Dose Route Admin Location Dispensed Lot Number Expiration Date [facility] [employer] 0.5 mL IM Left Deltoid 0.5 mL [id number] 10/29/25 [employer] VIS Given Date VIS Provided VIS Publication Date 09/06/24 Single Vaccine 21 Eligibility Eligibility Date Funding Source Not [facility] Eligible 09/06/24 Private Coding Level of Care Code Est Pt Level 4 (80304) Diagnoses Mixed hyperlipidemia E78.2 Hyperlipidemia type: mixed hyperlipidemia Primary hypertension I10 Hypertension type: primary hypertension Prostate cancer C61 Alcohol use disorder F10.90 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 He continues on simvastatin 20 mg without any side effect. Goal LDL is to remain below 100 (2) HTN (hypertension): Code(s): I10 - Essential (primary) hypertension Category: Medical Qualifiers: Hypertension type: primary hypertension Qualified Code(s): I10 - Essential (primary) hypertension Plan: Patient's blood pressure acceptable today in office. He does not regularly monitor his blood pressure at home. He reports he is consistent with the use of losartan hydrochlorothiazide. Goal blood pressures to be below 140/90 (3) Prostate cancer: Comment: High risk, initial therapy XRT with GnRH 2 years 2000 Code(s): C61 - Malignant neoplasm of prostate Category: Medical Plan: Patient continues to follow urology on an annual basis. Most recent PSAs have been undetectable (4) Alcohol use disorder: Code(s): F10.90 - Alcohol use, unspecified, uncomplicated Category: Medical Plan: Patient does admit to having a few shots of camelia per day. He does understand he needs to cut down (5) Cardiomyopathy: Code(s): I42.9 - Cardiomyopathy, unspecified Category: Medical Qualifiers: Cardiomyopathy type: alcoholic Qualified Code(s): I42.6 - Alcoholic cardiomyopathy Plan: Was followed by [facility], seems to have lost follow-up. Did have a dilated ascending aorta that was followed. Will try to get another transthoracic echocardiogram to evaluate for any enlarging aortic dilation (6) Seronegative rheumatoid arthritis: Comment: OA in the hands as well. MTX [id number] stopped due to alcohol use Hydroxychloroquine started 12/2017 Code(s): M06.00 - Rheumatoid arthritis without rheumatoid factor, unspecified site Category: Medical Plan: Patient continues on hydroxychloroquine. He reports only mild arthritic pain. (7) Ascending aorta dilatation: Code(s): I77.810 - Thoracic aortic ectasia Category: Medical Plan: Will try for repeat transthoracic echocardiogram to evaluate for any enlarging ascending aortic dilation. Recent CT angio chest showing-- >Ascending thoracic aorta measures 4.1 x 4.1 cm Orders: Orders Pneumococcal 20 Immunization Today Z23 - Encounter for immunization CA echo transthoracic complete Today I77.810 - Thoracic aortic ectasia Medications: Refilled triamcinolone acetonide 0.1% 1 appl topical DAILY 454 grams 2RF 30 days L30.9 - Dermatitis, unspecified
== END 2024-09-06 08:41 | disposition home or self-care (01) ==
LOC: HO.HMCH 08:02
PROVIDERS: PCP Physician Assistant; Visit Provider Physician Assistant
DX: M06.00 Rheumatoid arthritis without rheumatoid factor, unspecified site (principal); C61 Malignant neoplasm of prostate; I42.6 Alcoholic cardiomyopathy; I77.810 Thoracic aortic ectasia; E78.2 Mixed hyperlipidemia; I10 Essential (primary) hypertension; F10.90 Alcohol use, unspecified, uncomplicated; Z23 Encounter for immunization

== ENCOUNTER → 2024-09-06 08:01 | Outpatient (BNVA) | payer MEDICARE, SELFPAY | PROVIDERS: PCP Physician Assistant; Visit Provider Physician Assistant | DX: I10 Essential (primary) hypertension (principal); M06.00 Rheumatoid arthritis without rheumatoid factor, unspecified site; I42.9 Cardiomyopathy, unspecified; E78.2 Mixed hyperlipidemia; C61 Malignant neoplasm of prostate; F10.90 Alcohol use, unspecified, uncomplicated; I42.6 Alcoholic cardiomyopathy; I77.810 Thoracic aortic ectasia; L30.9 Dermatitis, unspecified; Z85.46 Personal history of malignant neoplasm of prostate; Z23 Encounter for immunization | CPT/HCPCS: 90471; 90677; 96127; 99212 ==

== ENCOUNTER → 2024-09-29 07:39 | Outpatient (REF) | payer MEDICARE, SELFPAY ==
--- NOTE | 2024-09-29 07:42 | CA_ITS ---
Transthoracic Echocardiogram Patient (Last, First, Middle): Piter Barber, Gender: Male Date of : 1940 Age: 84 Procedure Date: 09/29/2024 Procedure Type: Transthoracic Echocardiogram Location: OP Height: 180.34 cm Weight: 79.83 kg BSA: 2.00 m2 Heart Rate: bpm BP: 118 / 62 mmHg Curing Bin Operator: TO Referring MD: Prabhu Pratt PA-C Symptoms: I77.810 - Thoracic aortic ectasia Study Quality: Adequate ECG Rhythm: Sinus Conclusions: - Normal left ventricular cavity size. The left ventricular systolic function is low normal. The visually estimated ejection fraction is between 50-55%. - E/E prime ratio is between 8 and 15 consistent with indeterminate filling pressures. - Normal right ventricular cavity size and systolic function. - There is moderate dilatation of the ascending aorta measuring 4.70 cm. Findings Left Ventricle Normal left ventricular cavity size. The left ventricular systolic function is low normal. The visually estimated ejection fraction is between 50-55%. There is no evidence of regional wall motion abnormalities. Abnormal diastolic function is noted. Spectral Doppler is indicative of an impaired relaxation filling pattern. E/E prime ratio is between 8 and 15 consistent with indeterminate filling pressures. Right Ventricle Normal right ventricular cavity size and systolic function. Atria The left atrium is mildly dilated. The right atrium is normal in size. Aortic Valve There is mild calcification of the aortic valve. There is mild aortic valve stenosis. There is mild aortic valve regurgitation. Mitral Valve There is no mitral valve regurgitation. There is no mitral valve stenosis. There is subvalvular calcification. Pulmonic Valve The pulmonic valve is likely normal. Tricuspid Valve Normal tricuspid valve structure. There is no tricuspid valve regurgitation. Normal right atrial pressure. There is no evidence of pulmonary hypertension. Great Vessels There is moderate dilatation of the ascending aorta measuring 4.70 cm. Venous The inferior vena cava is normal in size and collapses greater than 50% with inspiration. Pericardium/Pleural There is no evidence of pericardial effusion. Prior Study Comparison No significant change compared to prior study dated: 04/12/2024. Measurements 2D Linear Measurements IVSd: 1.10 0.6-0.9/0.6-1.0 cm LVIDd: 4.42 3.9-5.3/4.2-5.9 cm LVIDd Index: 2.21 2.4-3.2/2.2-3.1 cm/m2 LVIDs: 3.37 2.0-3.6 cm LVPWd: 0.90 0.7-1.1 cm LV Mass: 185.13 67-162/88-224 g LV Mass Index: 92.57 43-95/49-115 g/m2 LVOT Diam: 2.40 3.0+(-)1.3 cm 2D Systolic Function EF 4C: 48.30 >55% EF 2C: 56.40 >55% EF BiP: 53.20 >55% Mitral Valve MV VTI: 0.36 MV Pk Oliverio: 1.43 MV Mn Oliverio: 0.71 MV Pk Grad: 8.00 MV Mn Grad: 3.00 MV Pk E: 0.82 MV PK A: 1.34 MV Decel Time: 189.00 E/A: 0.60 E'Lateral: 9.03 E'Medial: 4.24 E/E' Med: 19.30 E/E' Lat: 9.10 PHT: 55.00 MVA PHT: 4.00 MVA Continuity: 2.76 Decel Campbell: 4.34 Aortic Valve AoV Pk Oliverio: 2.39 AoV Mn Oliverio: 1.74 AoV VTI: 0.55 AoV Pk Grad: 23.00 Aov Mn Grad: 13.00 LOLIS Cont.VTI: 1.80 LVOT LVOT Pk Oliverio: 0.96 LVOT Mn Oliverio: 0.62 LVOT VTI: 0.22 LVOT Pk Grad: 4.00 LVOT Mn Grad: 2.00 LVOT Diam: 2.40 LVOT Area: 4.52 Diastolic Function MV Pk E: 0.82 MV Pk A: 1.34 E/A: 0.60 E'Medial: 4.24 E/E' Med: 19.30 E' Laterial: 9.03 E/E' Lat: 9.10 Right Ventricle TAPSE (mm): 25.00 TVS' Oliverio: 13.00 Tricuspid Valve TR Pk Oliverio: 2.00 TR Pk Grad: 16.00 RA Press: 3.00 RVSP: 19.00 Great Vessels Aorta Ao Asc: 4.70 2.1-3.4 cm Ao Arch: 3.50 Updated in Other Vendor System with Status of Final Aníbal Kilgore MD electronically signed on 10/01/2024 9:33:31 PM with status of Final
[2024-09-29 09:31] LABS: Hematocrit 36.5 % (42.0-52.0); Mean Corpuscular HGB Conc 32.9 g/dl (31.0-36.0); Mean Corpuscular Hemoglobin 33.1 pg (27.0-33.0); Mean Corpuscular Volume 100.8 fL (80.0-98.0); Mean Platelet Volume 9.6 fL (9.4-12.4); Platelet Count 259 X10*3/uL (160-400); Red Blood Count 3.62 X10*6/uL (4.60-5.80); White Blood Count 8.2 X10*3/uL (4.8-10.8)
[2024-09-29 10:19] LABS: Alanine Aminotransferase 34 U/L (0-40); Albumin Level 4.5 g/dL (3.5-5.0); Alkaline Phosphatase 72 U/L (39-117); Anion Gap 14 (12-20); Aspartate Amino Transferase 37 U/L (5-37); Bilirubin Total 0.7 mg/dL (0.0-1.0); Blood Urea Nitrogen 22 mg/dL (9-16); Calcium 9.9 mg/dL (8.4-10.2); Carbon Dioxide 30 mmol/L (22-29); Chloride 103 mmol/L (96-108); Cholesterol 184 mg/dL (<200); Estimated Glomerular Filt Rate > 60; Glucose Fasting 95 mg/dL (60-99); HDL Cholesterol 74 mg/dL (>40); LDL Cholesterol Calculated 78 mg/dL (<100); Potassium 4.2 mmol/L (3.3-5.1); Sodium 143 mmol/L (135-145); Triglycerides 162 mg/dL (<150)
[2024-09-29 10:39] LABS: Creatinine Urine 101.48 mg/dL; Microalbum/Creatinine Ratio Ur 19.7 ug/mg cr (<30)
== END ==
LOC: HO.CARD 07:39
PROVIDERS: PCP Physician Assistant; Visit Provider Internal Medicine
DX: I77.810 Thoracic aortic ectasia (principal); I10 Essential (primary) hypertension; E78.2 Mixed hyperlipidemia
CPT/HCPCS: 36415; 80053; 80061; 82043; 82570; 85027; 93306

== ENCOUNTER → 2024-09-29 07:42 | Outpatient (BNV) | payer MEDICARE, SELFPAY | PROVIDERS: PCP Physician Assistant; Visit Provider Internal Medicine Cardiovascular Disease | DX: I35.2 Nonrheumatic aortic (valve) stenosis with insufficiency (principal) | CPT/HCPCS: 93306 ==

== ENCOUNTER 2025-03-08 08:21 | Outpatient (AMB) | payer MEDICARE, SELFPAY ==
[2025-03-08 08:32] VITALS: BP 116/70; PULSE 75; TEMP 36.1; O2SAT 95; BMI 27.2
--- NOTE | 2025-03-08 08:32 | A.OFFPC_ITS ---
Vital Signs 3 03/08/25 08:32 Height 5 ft 7 in Weight 174 lb BMI 27.2 BP 116/70 Blood Pressure Location Lt brachial Position Sitting Pulse 75 Pulse Source Pulse Oximeter Temp 97.0 F Temp Source Temporal Artery Scan Pulse Oximetry (%) 95 Oxygen Delivery Method Room Air Intake Visit Reasons: f/u HLD/ HTN- see comments Allergies lisinopril (LISINOPRIL) Allergy (Intermediate, Verified 03/08/25 08:37) ANGIOEDEMA Medication List - Last Reconciled 03/08/25 by LORI Rutherford-Stephenie ascorbate calcium (vitamin C) 500 mg PO DAILY hydroxychloroquine 200 mg PO BID losartan-hydrochlorothiazide 50-12.5 mg 1 tab PO DAILY 90 days simvastatin 20 mg PO BEDTIME triamcinolone acetonide 0.1% 1 appl topical DAILY 30 days Tobacco use date assessed: 03/08/25 Fall risk assessment: No Falls in past year Last assessed Fall Risk: 03/08/25 Dental Screening Dental Screen Date: 03/08/25 Did you have a dental visit in the last 12 months?: No Did you have a dental problem in the last 6 months where you did not have access to dental care?: No Was dental information given to patient?: No HPI f/u HLD/ HTN- see comments 2 HPI0 Details Patient is an 85-year-old male here today for follow-up visit.? Patient has a past medical history significant for prostate cancer, seronegative rheumatoid arthritis, hypertension and hyperlipidemia, cardiomyopathy Concern-- > has noted itchy rash over his back to which she has been using triamcinolone cream. Does not usually use a moisturizer. Skin manifestation appears to be psoriasis versus eczema PLEASE SEE PICTURE IN PHYSICAL EXAM SECTIONED. . Cardiomyopathy: Patient has lost follow up to Cardiology. Otherwise patient reports he feels well without any overt signs of Congestive heart failure. 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 Recent CTA Chest showing thoracic aortic dilation at 4.1 cm. Unfortunately lost follow-up with Cardiology. Does report drinking 3-4 shots of camelia per day. PLAN: Will plan for another transthoracic echocardiogram to evaluate any progression in his valvular disease and ascending aortic dilation .. Seronegative rheumatoid arthritis:? Was followed by Rheumatology , continues on Plaquenil for his RA. He denies any significant arthralgias. .. Prostate cancer:? Patient followed by a urologist and gets yearly PSAs.? Prostate cancer has been in remission.? PSAs have been nondetectable .. Hypertension:? Blood pressure acceptable today in office.? Otherwise patient asymptomatic without chest discomfort, dizziness or headaches. [facility] Medical History Seronegative rheumatoid arthritis Prostate cancer Gastroesophageal reflux disease Primary osteoarthritis, right hand Primary osteoarthritis, left hand Primary osteoarthritis of knees, bilateral Elevated blood pressure reading in office with diagnosis of hypertension Prostate cancer Osteoarthritis, hand Rheumatoid arthritis Surgical History History of hernia repair H/O removal of cyst Family History Father Myocardial infarction Mother Alzheimer disease Social History Housing: House Alcohol intake: current Alcohol intake frequency: 0-2 drinks per day Alcohol type: beer and hard liquor Patient Tobacco Use Status: Former Tobacco user Tobacco use type: Cigarette e-Cigarette/Vaping Use: Never Used Second Hand Smoke Exposure: No service: No Current occupational status: retired Cognitive needs: No Hearing needs: No Vision needs: Yes Questionnaire PHQ-9 Over the last 2 weeks, how often have you been bothered by any of the following problems? 1. Little interest or pleasure in doing things: not at all 2. Feeling down, depressed, or hopeless: not at all 3. Trouble falling or staying asleep, or sleeping too much: not at all 4. Feeling tired or having little energy: not at all 5. Poor appetite or overeating: not at all 6. Feeling bad about yourself - or that you are a failure or have let yourself or your family down: not at all 7. Trouble concentrating on things, such as reading the newspaper or watching television: not at all 8. Moving or speaking so slowly that other people could have noticed. Or the opposite - being so fidgety or restless that you have been moving around a lot more than usual: not at all 9. Thoughts that you would be better off or of hurting yourself in some way: not at all Total score: 0 Depression Screening Interpretation: Negative Depression Screening Done: Yes 45150 - PHQ-9 Billing: Yes Source: Developed by Drs. Josh Saunders, Joyce Lobo, Umesh Romero and colleagues, with an educational mt from [employer]. Thrive Questionnaire Date Thrive assessed: 09/06/24 I am a: Patient What is your living situation today?: I have a steady place to live Within the past 12 months, did the food you bought not last and you didn't have the money to get more?: Never true Within the past 12 months, did you worry whether your food would run out before you got money to buy more?: Never true Do you have trouble paying for medicines?: No Do you have trouble getting transportation to medical appointments?: No Do you have trouble paying your heating and electricity bill?: No Do you have trouble taking care of your child, family member or friend?: No Do you have trouble with day-to-day activities such as bathing, preparing meals, shopping, managing finances, etc.?: No Are you currently unemployed and looking for a job?: No Are you interested in more education?: No Currently or been in a relationship where the following occur: No concerns reported THRIVE Score: 0 AUDIT C Alcohol Use Questionnaire (AUDIT-C) 1. How often do you have a drink containing alcohol?: 4 or more times a week 2. How many drinks containing alcohol do you have on a typical day when you are drinking?: 3 or 4 3. How often do you have six or more drinks on one occasion?: Never Total Score: 5 MARY-7 AMB Questionnaire MARY-7 Date MARY - 7 assessed: 09/06/24 Feeling nervous, anxious, or on edge: 0 = Not at all Not being able to stop or control worryin = Not at all Worrying too much about different things: 0 = Not at all Trouble relaxin = Not at all Being so restless that it is hard to sit still: 0 = Not at all Becoming easily annoyed or irritable: 0 = Not at all Feeling afraid as if something awful might happen: 0 = Not at all Total MARY-7 score (0-4 normal; 5-9 mild; 10-14 moderate; 15-21 severe): 0 Source: Developed by Drs. Josh Saunders, Joyce Lobo, Umesh Romero and colleagues, with an educational mt from [employer]. MARY-7 Assessment Billing MARY-7 Assessment Tool: MARY-7 Assessment 73733 Review of Systems Const Denies headache(s) Eyes Denies loss of vision ENT Denies vertigo, Denies dizziness, Denies headache(s) and Denies sore throat Card Denies chest pain, Denies leg edema and Denies lightheadedness Resp Denies cough, Denies hemoptysis and Denies wheezing GI Denies abdominal pain, Denies melena, Denies constipation, Denies diarrhea and Denies vomiting Denies dysuria, Denies urinary frequency and Denies urinary urgency Musc Denies arthralgias, Denies joint swelling, Denies numbness and Denies tingling Neuro Denies Abnormal speech present, Denies behavioral changes, Denies vertigo, Denies dizziness, Denies headache(s), Denies loss of vision, Denies memory loss, Denies numbness and Denies tingling Psych Denies anxiety, Denies behavioral changes, Denies depression, Denies memory loss and Denies panic attacks Tomy/Lymph Denies easy bleeding and Denies easy bruising Aller/Immun Denies wheezing Physical exam (Primary Care) Vital Signs: Last Vital Signs Temp 97.0 F 03/08/25 08:32 Pulse 75 03/08/25 08:32 BP 116/70 03/08/25 08:32 Pulse Ox 95 03/08/25 08:32 Oxygen Delivery Method Room Air 03/08/25 08:32 BMI result Body Mass Index 27.2 Tobacco/Smoking Status: Tobacco use Status Tobacco use date assessed 03/08/25 03/08/25 08:35 Patient Tobacco Use Status Former Tobacco user 03/08/25 08:35 Tobacco use type Cigarette 03/08/25 08:35 e-Cigarette/Vaping Use Never Used 03/08/25 08:35 PHQ-9: PHQ-9 Score PHQ-9: Total score 0 03/08/25 08:40 Depression Screening Interpretation: Negative Thrive Assessment: Date of Thrive Assessment Date Thrive assessed 09/06/24 03/08/25 08:35 Currently or been in a relationship where the following occur: No concerns reported Const General: healthy appearing, no acute distress, alert and awake Nutritional Appearance: well nourished Orientation/consciousness: oriented to person, oriented to place and oriented to time HENMT Ears: TM's normal bilaterally General nose exam: Normal nasal mucous membranes and turbinates present Eyes Conjunctivae: conjunctivae normal Sclerae: sclerae normal Pupils: Equal, round and reactive pupils present Neck Neck: Yes no lymphadenopathy and Yes no JVD Thyroid: Thyroid normal Carotids: no bruits Resp Effort & Inspection: normal respiratory effort and not tachypneic Auscultation: no crackles, no rales, no rhonchi and no wheezes Cardio Rate: regular rate Rhythm: regular rhythm Heart sounds: no murmurs and normal S1 and S2 GI Palpation (GI): Soft to palpation, nontender, no hepatomegaly and no splenomegaly Auscultation: normal bowel sounds Skin Other: General skin exam: no rashes or lesions noted and dry skin Neuro General: oriented to person, oriented to place and oriented to time Cranial nerves: Yes Equal, round and reactive pupils present Speech: No Abnormal speech present Gait exam (Neuro): Normal gait present Motor exam (neuro): no tremor noted Extrem Right upper extremity: full ROM Left upper extremity: full ROM Right lower extremity: full ROM; no edema Left lower extremity: full ROM; no edema Psych Mental Status: mental status grossly normal Speech and movement: Normal speech and movement present Affect: normal affect Attitude: cooperative Thought process: Normal thought process present Office Procedures Flu Questionnaire Does the patient have a severe egg allergy?: No Does the patient have severe life threatening allergies?: No Does the patient have a fever or illness today?: No Has the patient ever had Guillain-[place] Syndrome?: No Has the patient ever had any past reaction to a flu shot?: No Immunizations Fluarix [id number] (PF) 45 mcg (15 mcg x 3)/0.5 mL IM syringe Performing Provider: Prabhu Pratt PA-C [facility] Administered by: Hailey Luke CMA on 03/08/25 08:53 2 Dose Route Admin Location Dispensed Lot Number Expiration Date [facility] Occupational Therapist Assistant 0.5 mL IM Left Deltoid 0.5 mL [id number] 11/27/25 [id number] MIGSIF 2 VIS Given Date VIS Provided VIS Publication Date 03/08/25 Single Vaccine 24 Eligibility Eligibility Date Funding Source Not [facility] Eligible 03/08/25 Private Coding Level of Care Code Est Pt Level 4 (36811) Diagnoses Mixed hyperlipidemia E78.2 Hyperlipidemia type: mixed hyperlipidemia Primary hypertension I10 Hypertension type: primary hypertension Prostate cancer C61 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 He continues on simvastatin 20 mg without any side effect. Goal LDL is to remain below 100 (2) HTN (hypertension): Code(s): I10 - Essential (primary) hypertension Category: Medical Qualifiers: Hypertension type: primary hypertension Qualified Code(s): I10 - Essential (primary) hypertension Plan: Patient's blood pressure acceptable today in office. He does not regularly monitor his blood pressure at home. He reports he is consistent with the use of losartan hydrochlorothiazide. Goal blood pressures to be below 140/90 (3) Prostate cancer: Comment: High risk, initial therapy XRT with GnRH 2 years 2000 Code(s): C61 - Malignant neoplasm of prostate Category: Medical Plan: Patient continues to follow urology on an annual basis. Most recent PSAs have been undetectable (4) Cardiomyopathy: Code(s): I42.9 - Cardiomyopathy, unspecified Category: Medical Qualifiers: Cardiomyopathy type: alcoholic Qualified Code(s): I42.6 - Alcoholic cardiomyopathy Plan: Was followed by [facility], seems to have lost follow-up. Did have a dilated ascending aorta that was followed. Will try to get another transthoracic echocardiogram to evaluate for any enlarging aortic dilation (5) Seronegative rheumatoid arthritis: Comment: OA in the hands as well. MTX [id number] stopped due to alcohol use Hydroxychloroquine started 12/2017 Code(s): M06.00 - Rheumatoid arthritis without rheumatoid factor, unspecified site Category: Medical Plan: Patient continues on hydroxychloroquine. He reports only mild arthritic pain. (6) Ascending aorta dilatation: Code(s): I77.810 - Thoracic aortic ectasia Category: Medical Plan: Will try for repeat transthoracic echocardiogram to evaluate for any enlarging ascending aortic dilation. Recent CT angio chest showing-- >Ascending thoracic aorta measures 4.1 x 4.1 cm (7) Psoriasis: Code(s): L40.9 - Psoriasis, unspecified Category: Medical Plan: For the psoriasis, the patient will continue using topical treatments and moisturizers, with the option to consult a sociocultural anthropology professor if the condition worsens. Orders: Orders 2 Comprehensive [place]. Panel Fast Today I10 - Essential (primary) hypertension Complete Blood Count no Diff Today I10 - Essential (primary) hypertension Microalbumin, Random (w Creat) Today I10 - Essential (primary) hypertension Lipid Panel Today E78.2 - Mixed hyperlipidemia Prostate Specific Antigen Scr Today C61 - Malignant neoplasm of prostate, Z12.5 - Encounter for screening for malignant neoplasm of prostate CA echo transthoracic complete Today I34.81 - Nonrheumatic mitral (valve) annulus calcification Influenza [id number] Immunization Today Z23 - Encounter for immunization Medications: Refilled 2 triamcinolone acetonide 0.1% 1 appl topical DAILY 454 grams 2RF 30 days L30.9 - Dermatitis, unspecified
== END 2025-03-08 08:56 | disposition home or self-care (01) ==
LOC: HO.HMCH 08:22
PROVIDERS: PCP Physician Assistant; Visit Provider Physician Assistant
DX: I10 Essential (primary) hypertension (principal); C61 Malignant neoplasm of prostate; I42.6 Alcoholic cardiomyopathy; M06.00 Rheumatoid arthritis without rheumatoid factor, unspecified site; E78.2 Mixed hyperlipidemia; I77.810 Thoracic aortic ectasia; L40.9 Psoriasis, unspecified; Z23 Encounter for immunization

== ENCOUNTER → 2025-03-08 08:21 | Outpatient (BNVA) | payer MEDICARE, SELFPAY | PROVIDERS: PCP Physician Assistant; Visit Provider Physician Assistant | DX: E78.2 Mixed hyperlipidemia (principal); Z23 Encounter for immunization; I10 Essential (primary) hypertension; C61 Malignant neoplasm of prostate; I42.6 Alcoholic cardiomyopathy; M06.00 Rheumatoid arthritis without rheumatoid factor, unspecified site; I77.810 Thoracic aortic ectasia; L40.9 Psoriasis, unspecified; Z79.899 Other long term (current) drug therapy; Z13.31 Encounter for screening for depression | CPT/HCPCS: 90471; 90656; 96127; 99212 ==

== ENCOUNTER → 2025-04-17 08:27 | Outpatient (REF) | payer MEDICARE, SELFPAY ==
--- NOTE | 2025-04-17 09:02 | CA_ITS ---
Transthoracic Echocardiogram Patient (Last, First, Middle): Piter Barber, Gender: Fortino Date of : 1940 Age: 85 Procedure Date: 04/17/2025 Procedure Type: Transthoracic Echocardiogram Location: OP Height: 172.72 cm Weight: 78.47 kg BSA: 1.92 m2 Heart Rate: 71 bpm BP: 118 / 60 mmHg Bioinformatics Support Specialist: TONE Referring MD: Prabhu Pratt PA-C Symptoms: I34.81 - Nonrheumatic mitral (valve) annulus calcification Study Quality: Fair ECG Rhythm: Arrhythmia Conclusions: - The left ventricular systolic function is mildly decreased. The visually estimated ejection fraction is between 45-50%. - There is moderate calcification of the aortic valve. There is mild aortic valve stenosis. - There is severe mitral annular calcification. - There is moderate dilatation of the ascending aorta measuring 4.70 cm. Findings Left Ventricle Normal left ventricular cavity size. There is mildly increased left ventricular wall thickness. The left ventricular systolic function is mildly decreased. The visually estimated ejection fraction is between 45-50%. There is mild global hypokinesis. Evidence suggests grade I (mild) diastolic dysfunction. Right Ventricle Mildly increased right ventricular cavity size. There is normal right ventricular systolic function. Atria Both atria are normal in size. Aortic Valve There is moderate calcification of the aortic valve. There is mild aortic valve stenosis. Trace to mild aortic regurgitation. Mitral Valve There is severe mitral annular calcification. There is trace mitral valve regurgitation. There is no mitral valve stenosis. Pulmonic Valve The pulmonic valve is likely normal. Tricuspid Valve Normal tricuspid valve structure. There is trace tricuspid valve regurgitation. Tricuspid regurgitation envelope is inadequate for calculation of right ventricular systolic pressure. Great Vessels The aortic arch is normal in size. There is moderate dilatation of the ascending aorta measuring 4.70 cm. Venous The inferior vena cava is normal in size and collapses greater than 50% with inspiration. Pericardium/Pleural There is no evidence of pericardial effusion. Prior Study Comparison No significant change compared to prior study dated: 09/29/2024. Measurements 2D Linear Measurements IVSd: 0.87 0.6-0.9/0.6-1.0 cm LVIDd: 4.79 3.9-5.3/4.2-5.9 cm LVIDd Index: 2.49 2.4-3.2/2.2-3.1 cm/m2 LVIDs: 2.92 2.0-3.6 cm LVPWd: 0.88 0.7-1.1 cm LA Diam: 2.90 2.7-3.8/3.0-4.0 cm LAIDs Index: 1.51 1.5-2.3 cm/m2 LV Mass: 176.88 67-162/88-224 g LV Mass Index: 92.13 43-95/49-115 g/m2 LVOT Diam: 2.30 3.0+(-)1.3 cm 2D Systolic Function EF 4C: 42.10 >55% EF 2C: 44.40 >55% EF BiP: 42.70 >55% Mitral Valve MV Pk E: 0.85 MV PK A: 1.50 MV Decel Time: 320.00 E/A: 0.60 E'Lateral: 8.81 E'Medial: 6.42 E/E' Med: 13.30 E/E' Lat: 9.70 PHT: 94.00 MVA PHT: 2.34 Decel Moore: 2.67 Aortic Valve AoV Pk Oliverio: 2.34 AoV Mn Oliverio: 1.66 AoV VTI: 0.48 AoV Pk Grad: 22.00 Aov Mn Grad: 13.00 LOLIS Cont.VTI: 1.70 AI Pk Oliverio: 4.00 AI Moore: 2.53 LVOT LVOT Pk Oliverio: 0.97 LVOT Mn Oliverio: 0.68 LVOT VTI: 0.20 LVOT Pk Grad: 4.00 LVOT Mn Grad: 2.00 LVOT Diam: 2.30 LVOT Area: 4.15 Diastolic Function MV Pk E: 0.85 MV Pk A: 1.50 E/A: 0.60 E'Medial: 6.42 E/E' Med: 13.30 E' Laterial: 8.81 E/E' Lat: 9.70 Right Ventricle TAPSE (mm): 24.80 TVS' Oliverio: 11.50 Tricuspid Valve RA Press: 3.00 Great Vessels Aorta Sinus of Valsalva: 4.00 2.0-3.5 cm Ao Asc: 4.70 2.1-3.4 cm Ao Arch: 3.30 Pulmonary Veins Pulm Vein S/D 1.10 Pulmonary Valve PV Pk Oliverio: 1.03 Peak PV Grad: 4.00 Updated in Other Vendor System with Status of Final Law Ibarra MD electronically signed on 04/18/2025 3:14:34 PM with status of Final
== END ==
LOC: HO.CARD 08:27
PROVIDERS: PCP Physician Assistant; Visit Provider Physician Assistant
DX: I34.81 Nonrheumatic mitral (valve) annulus calcification (principal)
CPT/HCPCS: 93306

== ENCOUNTER → 2025-04-17 09:02 | Outpatient (BNV) | payer MEDICARE, SELFPAY | PROVIDERS: PCP Physician Assistant; Visit Provider Internal Medicine | DX: I34.81 Nonrheumatic mitral (valve) annulus calcification (principal); I35.8 Other nonrheumatic aortic valve disorders; I77.810 Thoracic aortic ectasia | CPT/HCPCS: 93306 ==

== ENCOUNTER 2025-05-11 06:11 | Outpatient (REF) | payer MEDICARE, SELFPAY ==
--- OUTSIDE RECORDS SUMMARY | 2025-05-11 06:13 | XMS_ITS ---
Author Name [facility] Organization Unknown Care Team Organization Name Specialty Phone Email Start Date End Da te [facility] Serafin [facility] 04/07/2022 01/17/2024
--- OUTSIDE RECORDS SUMMARY | 2025-05-11 06:13 | XMS_ITS | Patient Health Record ---
Author Organization [facility] Address [address] [place] [address] Care Team Providers Care First Line Supervisor Name Role Phone Josh Wolf Unavailable [phone] Reason For Referral No Information Plan Of Treatment No Information
[2025-05-11 07:12] LABS: Hematocrit 36.7 % (42.0-52.0); Hemoglobin 11.9 g/dl (14.0-18.0); Mean Corpuscular HGB Conc 32.4 g/dl (31.0-36.0); Mean Corpuscular Hemoglobin 33.2 pg (27.0-33.0); Mean Corpuscular Volume 102.5 fL (80.0-98.0); NRBC Abs Auto 0.000 X10*3/uL (0.0-0.012); NRBC Pct Auto 0.0 /100WBC (0.0-0.2); Platelet Count 247 X10*3/uL (160-400); Red Blood Count 3.58 X10*6/uL (4.60-5.80); White Blood Count 7.1 X10*3/uL (4.8-10.8)
[2025-05-11 07:43] LABS: Alanine Aminotransferase 35 U/L (0-40); Albumin Level 4.7 g/dL (3.5-5.0); Alkaline Phosphatase 77 U/L (39-117); Anion Gap 14 (12-20); Aspartate Amino Transferase 39 U/L (5-37); Blood Urea Nitrogen 26 mg/dL (9-16); Calcium 10.0 mg/dL (8.4-10.2); Carbon Dioxide 28 mmol/L (22-29); Chloride 105 mmol/L (96-108); Cholesterol 179 mg/dL (<200); Estimated Glomerular Filt Rate 58; HDL Cholesterol 74 mg/dL (>40); Potassium 4.2 mmol/L (3.3-5.1); Sodium 143 mmol/L (135-145); Total Protein 7.0 g/dL (6.5-8.0); Triglycerides 79 mg/dL (<150)
[2025-05-11 08:05] LABS: Microalbum/Creatinine Ratio Ur 29.6 ug/mg cr (<30)
== END 2025-05-11 06:12 | disposition home or self-care (01) ==
LOC: HO.LAB 06:11
PROVIDERS: PCP Physician Assistant; Visit Provider Physician Assistant
DX: Z12.5 Encounter for screening for malignant neoplasm of prostate (principal); C61 Malignant neoplasm of prostate; E78.2 Mixed hyperlipidemia; I10 Essential (primary) hypertension
CPT/HCPCS: 36415; 80053; 80061; 82043; 82570; 84153; 85027